=== PATIENT | male | born 1970 | race Caucasian/White ===

== ENCOUNTER 2021-03-09 10:25 | Outpatient (REF) | payer OTHER, SELFPAY ==
--- NOTE | ~2021-03-09 | XR_ITS ---
EXAMINATION: XR CHEST CLINICAL INFORMATION: Essential primary hypertension. COMPARISON: None TECHNIQUE: 2 views of the chest were obtained. FINDINGS: No significant abnormality is noted involving the heart, lungs, mediastinum, bony thorax or soft tissues. XR/XR chest 2V IMPRESSION: Unremarkable chest examination.
[2021-03-09 12:42] LABS: Blood Urea Nitrogen 24 mg/dL (9-16); Calcium 9.6 mg/dL (8.4-10.2); Estimated Glomerular Filt Rate > 60
[2021-03-09 12:47] LABS: Creatinine Urine 93.46 mg/dL; Protein/Creatinine Ratio, Ur 0.48 (<0.2); Total Protein Urine Random 45 mg/dL (<12)
[2021-03-09 13:41] LABS: Anion Gap 14 (12-20); Carbon Dioxide 25 mmol/L (22-29); Chloride 102 mmol/L (96-108); Sodium 136 mmol/L (135-145)
[2021-03-09 13:45] LABS: Renal w Reflex Lab Use Only Order verified
== END 2021-03-09 10:26 | disposition home or self-care (01) ==
LOC: HO.LAB 10:25
PROVIDERS: Absent Provider Internal Medicine; PCP Internal Medicine; Visit Provider Internal Medicine Nephrology
DX: I10 Essential (primary) hypertension (principal); R80.1 Persistent proteinuria, unspecified; Z90.5 Acquired absence of kidney
CPT/HCPCS: 36415; 71046; 80051; 82310; 82565; 84100; 84156; 84520

== ENCOUNTER 2022-03-26 14:16 | Outpatient (REF) | payer OTHER, SELFPAY ==
--- NOTE | ~2022-03-26 | XR_ITS ---
EXAMINATION: LUMBAR SPINE X-RAY CLINICAL INFORMATION: Low back pain radiating to left hip COMPARISON: None TECHNIQUE: 3 views of the lower lumbar spine FINDINGS: Bone alignment is normal. No fracture or dislocation is seen. The disc spaces are normal. There is lower lumbar spine facet arthritis. XR/XR lumbar spine 2-3V IMPRESSION: Lower lumbar spine facet arthritis. EXAMINATION: Left elbow x-ray CLINICAL INFORMATION: Pain COMPARISON: None. TECHNIQUE: 3 views of the left elbow FINDINGS: Bone alignment is normal. No fracture or dislocation is seen. The joint spaces are normal. There are soft tissue ossifications adjacent to the medial and lateral humeral epicondyles. There is an osteophyte at the triceps tendon insertion to the olecranon. There is no joint effusion. IMPRESSION: Soft tissue calcification or ossification at the medial and lateral epicondyles suggestive of old epicondylitis. Osteophyte at the triceps tendon insertion to the olecranon.
--- NOTE | ~2022-03-26 | XR_ITS ---
EXAMINATION: LUMBAR SPINE X-RAY CLINICAL INFORMATION: Low back pain radiating to left hip COMPARISON: None TECHNIQUE: 3 views of the lower lumbar spine FINDINGS: Bone alignment is normal. No fracture or dislocation is seen. The disc spaces are normal. There is lower lumbar spine facet arthritis. XR/XR elbow LT 2V IMPRESSION: Lower lumbar spine facet arthritis. EXAMINATION: Left elbow x-ray CLINICAL INFORMATION: Pain COMPARISON: None. TECHNIQUE: 3 views of the left elbow FINDINGS: Bone alignment is normal. No fracture or dislocation is seen. The joint spaces are normal. There are soft tissue ossifications adjacent to the medial and lateral humeral epicondyles. There is an osteophyte at the triceps tendon insertion to the olecranon. There is no joint effusion. IMPRESSION: Soft tissue calcification or ossification at the medial and lateral epicondyles suggestive of old epicondylitis. Osteophyte at the triceps tendon insertion to the olecranon.
== END 2022-03-26 14:17 | disposition home or self-care (01) ==
LOC: HO.XRAY 14:16
PROVIDERS: PCP Internal Medicine; Visit Provider Internal Medicine
DX: M25.522 Pain in left elbow (principal); M54.50 Low back pain, unspecified
CPT/HCPCS: 72100; 73070

== ENCOUNTER 2022-04-28 15:16 | Outpatient (REF) | payer OTHER, SELFPAY ==
--- NOTE | ~2022-04-28 | US_ITS ---
EXAMINATION: US SCROTUM CLINICAL INFORMATION: Unspecified undescended testicle, unilateral. COMPARISON: None TECHNIQUE: A sonogram of the scrotum was performed assessing portillo-scale appearance and color Doppler flow. Spectral Doppler analysis of the arterial and venous flow were performed in the testes bilaterally. FINDINGS: RIGHT: Right testicle measures 3.0 x 1.5 x 2.1 cm, volume 5.0 mL. No focal testicular parenchymal lesions are visualized. Spectral Doppler analysis of the arterial and venous flow is normal in the right testis. Right epididymal head is normal in size. There is an anechoic cyst in the body of the epididymis. No right hydrocele or varicocele is seen. Right epididymal Doppler flow is normal. LEFT: Left testicle measures 3.3 x 1.5 x 1.9 cm, volume 5.1 mL. No focal testicular parenchymal lesions are visualized. Spectral Doppler analysis of the arterial and venous flow is normal in the left testis. There are prominent dilated vessels in the left scrotum and left testicle is suspicious for varicosity. Left epididymal head is normal in size. There is an anechoic cyst in the head of the epididymis. No left hydrocele or varicocele is seen. Left epididymal Doppler flow is normal. US/US scrotum IMPRESSION: Bilateral epididymal cysts. Dilated vessels in the left testicle and the scrotum suspicious for varicose veins. There is no hydrocele. The testes are unremarkable.
== END 2022-04-28 15:17 | disposition home or self-care (01) ==
LOC: HO.US 15:16
PROVIDERS: Visit Provider Internal Medicine
DX: Q53.10 Unspecified undescended testicle, unilateral (principal)
CPT/HCPCS: 76870

== ENCOUNTER 2023-02-21 16:14 | Outpatient (REF) | payer OTHER, SELFPAY ==
[2023-02-21 16:30] LABS: MANUAL DIFF FLAG NO
[2023-02-21 17:31] LABS: Basophils Absolute Auto 0.1 X10*3/uL (0.0-0.2); Basophils Percent Auto 0.8 % (0-2); Eosinophils Absolute Auto 0.5 X10*3/uL (0.0-0.4); Hematocrit 44.9 % (42.0-52.0); Hemoglobin 15.7 g/dl (14.0-18.0); Imm Gran Abs Auto 0.04 X10*3/uL (0.00-0.03); Imm Gran Pct Auto 0.4 % (0.0-0.4); Lymphocytes Absolute Auto 3.3 X10*3/uL (1.2-4.9); Lymphocytes Percent Auto 34.8 % (20-40); Mean Corpuscular Hemoglobin 31.1 pg (27.0-33.0); Mean Corpuscular Volume 88.9 fL (80.0-98.0); Mean Platelet Volume 10.2 fL (9.4-12.4); Monocytes Absolute Auto 0.8 X10*3/uL (0.1-1.2); Monocytes Percent Auto 8.6 % (2-11); Neutrophils Absolute Auto 4.8 x10*3/uL (2.0-8.3); Neutrophils Percent Auto 50.4 % (45-73); Platelet Count 286 X10*3/uL (160-400); Red Blood Count 5.05 X10*6/uL (4.60-5.80); Red Cell Distribution Width 12.2 % (11.0-16.0); White Blood Count 9.5 X10*3/uL (4.8-10.8)
[2023-02-21 17:35] LABS: Appearance Urine Clear; Color Urine Yellow; Glucose Urine UA Negative (Negative); Leukocyte Esterase Urine Negative (Negative); Nitrite Urine Negative (Negative); PH 5.5 (5.0-9.0); Specific Gravity - Urine 1.015 (1.005-1.025); UMIC TRIGGER UA YES; Urine Blood Negative (Negative); Urine Ketones Negative (Negative); Urine Protein 100 (2+) mg/dL (Neg-Trace)
[2023-02-21 17:40] LABS: Bacteria Urine None Seen (None Seen); Hyaline Casts Urine 0-2 /LPF (0-2); RBC Urine 0-2 /HPF (0-2); Squamous Epithelial Cell Urine 0-2 /HPF (0-2); WBC Urine 0-5 /HPF (0-5)
[2023-02-21 17:44] LABS: Creatinine Urine 111.46 mg/dL; Protein/Creatinine Ratio, Ur 0.98 (<0.2); Total Protein Urine Random 109 mg/dL (<12)
[2023-02-21 17:59] LABS: Alanine Aminotransferase 37 U/L (0-40); Albumin Level 4.1 g/dL (3.5-5.0); Alkaline Phosphatase 89 U/L (39-117); Anion Gap 12 (12-20); Aspartate Amino Transferase 25 U/L (5-37); Blood Urea Nitrogen 14 mg/dL (9-16); Calcium 9.6 mg/dL (8.4-10.2); Carbon Dioxide 27 mmol/L (22-29); Chloride 107 mmol/L (96-108); Estimated Glomerular Filt Rate > 60; Glucose Random 84 mg/dL (60-115); Potassium 4.3 mmol/L (3.3-5.1); Sodium 142 mmol/L (135-145)
== END 2023-02-21 16:15 | disposition home or self-care (01) ==
LOC: HO.LAB 16:14
PROVIDERS: Visit Provider Internal Medicine Hypertension Specialist
DX: R80.1 Persistent proteinuria, unspecified (principal)
CPT/HCPCS: 36415; 80053; 81001; 84156; 85025

== ENCOUNTER 2023-07-07 15:47 | Outpatient (AMB) | payer OTHER, SELFPAY ==
[2023-07-07 15:49] VITALS: BP 136/90; PULSE 71; O2SAT 97; BMI 27.1
--- NOTE | 2023-07-07 15:49 | AM.OFFVISMDC ---
Intake Vital Signs 07/07/23 15:49 Height 5 ft 5 in Weight 163 lb BMI 27.1 BP 136/90 H Blood Pressure Location Lt brachial Position Sitting Pulse 71 Pulse Source Pulse Oximeter Temp Source Skin Pulse Oximetry (%) 97 Oxygen Delivery Method Room Air Intake Visit Reasons: SAWV Intake Note: Patient is here for an Annual Wellness Visit. 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 Patient of Dr. Kelly. Today we discussed patient's need for prostate cancer screening. Tetanus vaccine in 2018 per patient. Cologuard negative 07/2022. [place] of care was reviewed with the patient and he was provided with a screening schedule. End of life planning was discussed with the patient and he was provided with healthcare proxy and MOLST forms. PHQ-9 score 20, patient denies SI or HI, patient grieving due to of his dog 3 weeks ago, declined therapist or psychiatry referral, reports he has crisis phone number. ON LICENSE OF [facility] Medical History Hypertension Otitis media Screening for diabetes mellitus Screening for prostate cancer Surgical History No pertinent past surgical history Family History Father No problems noted. Mother Breast cancer Diabetes Brother Diabetes Hypertension Social History Housing: Apartment Alcohol intake: current Alcohol intake frequency: a few times a week Alcohol type: beer Patient Tobacco Use Status: Current everyday Tobacco user Tobacco use type: Cigarette Cigarettes Per Day: 7 e-Cigarette/Vaping Use: Never Used Second Hand Smoke Exposure: No service: No Current occupational status: employed and disabled Cognitive needs: No Hearing needs: No Vision needs: No Questionnaire Medicare Wellness Checkup What [age]?: 65-69 (52) What gender do you identify with?: male During the past 4 weeks, how much have you been bothered by emotional problems such as feeling anxious, depressed, irritable, sad or downhearted, and blue?: extremely During the past 4 weeks, has your physical & emotional health limited your social activities with family, friends, neighbors, or groups?: extremely During the past 4 weeks, how much bodily pain have you generally had?: moderate pain During the past 4 weeks, was someone available to help you if you needed & wanted help?: yes, as much as I wanted During the past 4 weeks, what was the hardest physical activity you could do for at least 2 minutes?: light Can you get to places out of walking distance without help? (For eg., can you travel alone on buses, taxis or drive your car?): Yes Can you go shopping for groceries or clothes without someone's help?: Yes Can you prepare your own meals?: Yes Can you do your housework without help?: Yes Because of any health problems, do you need the help of another person with your personal care needs such as eating, bathing, dressing or getting around the house?: No Can you handle your own money without help?: Yes During the past 4 weeks, how would you rate your health in general?: fair During the past 4 weeks how have things been going for you?: pretty bad Are you having difficulties driving your car?: no Do you always fasten your seat belt when you are in a car?: yes, usually During past 4 weeks, have you been bothered by the following: never: Falling or dizzy when standing up, Sexual problems?, Teeth or denture problems? and Problems using the telephone?, seldom: Trouble eating well? and always: Tiredness or fatigue? Have you fallen 2 or more times in the past year?: No Are you afraid of falling?: No Are you a smoker?: yes, and I might quit During the past 4 weeks, how many drinks of wine, beer, or other alcoholic beverages did you have?: 6-9 drinks per week Do you exercise for about 20 minutes 3 or more times a week?: yes, most of the time How often do you have trouble taking medicines the way you have been told to take them?: I always take medicine as prescribed How confident are you that you can control & manage most of your health problems?: very confident What is your race?: or origin or descent Mini Mental State Exam (MMSE) Orientation What is the (year) (season) (date) (day) (month)?: year, season, date, day and month Score Score: 5 Activity of Daily Living Bathing - sponge bath, tub bath or shower: receives no assistance (gets in/out by self, if usual bathing means Dressing - getting clothes from closets & drawers, including inner/outer garments & fasteners.: gets clothes & gets completely dressed without help Toileting - going to the 'toilet room' for urine/bowel elimination & cleaning self/arranging clothes: goes to toilet room, cleans self, arranges clothes without help Transfer: moves in & out of bed and chair without help (may use support object) Continence: controls urination/bowel movements completely by self Feeding: feeds self without help Total Score: 0 Information obtained from: patient Using telephone: independent Traveling: independent Shopping: independent Preparing meals: independent Housework: independent Taking medicine: independent Managing money: independent PHQ-9 Over the last 2 weeks, how often have you been bothered by any of the following problems? 1. Little interest or pleasure in doing things: nearly every day 2. Feeling down, depressed, or hopeless: nearly every day 3. Trouble falling or staying asleep, or sleeping too much: nearly every day 4. Feeling tired or having little energy: nearly every day 5. Poor appetite or overeating: nearly every day 6. Feeling bad about yourself - or that you are a failure or have let yourself or your family down: not at all 7. Trouble concentrating on things, such as reading the newspaper or watching television: nearly every day 8. Moving or speaking so slowly that other people could have noticed. Or the opposite - being so fidgety or restless that you have been moving around a lot more than usual: not at all 9. Thoughts that you would be better off or of hurting yourself in some way: more than half the days Total score: 20 Depression Screening Interpretation: Positive Depression Screening Follow-up: Existing condition and Declines treatment 40136 - PHQ-9 Billing: Yes Source: Developed by Drs. Gentry Cruz, Sarah Mcdermott, Gabriel Austin and colleagues, with an educational michael from [employer]. Physical Exam Vital Signs: Last Vital Signs Pulse 71 07/07/23 15:49 BP 136/90 H 07/07/23 15:49 Pulse Ox 97 07/07/23 15:49 Oxygen Delivery Method Room Air 07/07/23 15:49 BMI result Body Mass Index 27.1 Const General: cooperative and no acute distress Orientation/consciousness: patient oriented x3 HEENT Other: Whisper test: pass Neuro Other: Balance: Normal Get up and walk: able to Romberg: negative Tandem gait: able to General: patient oriented x3 Assessment & Plan Assessment & Plan (1) Adult general medical exam: Code(s): Z00.00 - Encounter for general adult medical examination without abnormal findings (2) Screening for prostate cancer: Code(s): Z12.5 - Encounter for screening for malignant neoplasm of prostate (3) Depression: Code(s): F32.9 - Major depressive disorder, single episode, unspecified Qualifiers: Depression Type: unspecified Qualified Code(s): F32.9 - Major depressive disorder, single episode, unspecified Plan: PHQ-9 score 20, patient denies SI or HI, patient grieving due to of his dog 3 weeks ago, declined therapist or psychiatry referral, reports he has crisis phone number. (4) Bipolar disorder: Code(s): F31.9 - Bipolar disorder, unspecified Qualifiers: Active/Remission status: remission status unspecified Qualified Code(s): F31.9 - Bipolar disorder, unspecified Plan: Not on treatment Same as above (5) Hypertension: Code(s): I10 - Essential (primary) hypertension Qualifiers: Hypertension type: unspecified Qualified Code(s): I10 - Essential (primary) hypertension Plan: Continue current treatment Low-sodium diet (6) Asthma: Code(s): J45.909 - Unspecified asthma, uncomplicated Plan: Stable Continue albuterol inhaler p.r.n. Orders: Orders Prostate Specific Antigen Today Z12.5 - Encounter for screening for malignant neoplasm of prostate Medications: Changed From lisinopril 2.5 mg PO DAILY 90 tabs 8RF To lisinopril 5 mg PO DAILY Quality Reporting (2019) Depression/Bipolar (159/160/161/177) PHQ-9: Total score: 20 Coding Level of Care Code Medicare Subsequent (G0439) Diagnoses Adult general medical exam Z00.00 Screening for prostate cancer Z12.5 Depression F32.9 Depression Type: unspecified Bipolar disorder F31.9 Active/Remission status: remission status unspecified Hypertension I10 Hypertension type: unspecified Asthma J45.909 CPT Codes Advance Care Planning - Time spent: 1-15 minutes, not on file ([id number]) Advance Care Planning Date of discussion: 07/07/23 Who was present: pt and palliative senior np Forms completed: None Time spent: 1-15 minutes, not on file Actual minutes spent: 2 Did not discuss due to Cultural/Spiritual beliefs: No
== END 2023-07-07 16:23 | disposition home or self-care (01) ==
LOC: HO.HMGH 15:47
PROVIDERS: PCP Internal Medicine; Visit Provider Nurse Practitioner Family
DX: Z00.00 Encounter for general adult medical examination without abnormal findings (principal); F31.9 Bipolar disorder, unspecified; I10 Essential (primary) hypertension; J45.909 Unspecified asthma, uncomplicated; F32.9 Major depressive disorder, single episode, unspecified
CPT/HCPCS: 1124F; G0439

== ENCOUNTER 2023-08-19 10:36 | Outpatient (AMB) | payer OTHER, SELFPAY ==
[2023-08-19 10:51] VITALS: BP 132/70; PULSE 75; O2SAT 99; BMI 27.3
--- NOTE | 2023-08-19 10:51 | A.OFFPC_ITS ---
Vital Signs 08/19/23 10:51 Height 5 ft 5 in Weight 164 lb BMI 27.3 BP 132/70 Blood Pressure Location Lt brachial Position Sitting Pulse 75 Pulse Source Pulse Oximeter Pulse Oximetry (%) 99 Oxygen Delivery Method Room Air Intake Visit Reasons: stomach upset Allergies Penicillins [PENICILLINS] Allergy (Severe, Verified 08/19/23 10:51) ANAPHYLAXIS SEAFOOD Allergy (Severe, Uncoded 08/19/23 10:51) HIVES penincillin Allergy (Unknown, Uncoded 08/19/23 10:51) Immunodeficiency Medication List - Last Reconciled 08/19/23 by Demarco Kelly MD albuterol sulfate 90 mcg/actuation (ProAir HFA) 2 puffs PO Q6H PRN lisinopril 5 mg PO DAILY naproxen (Naprosyn) 500 mg PO BID PRN Tobacco use date assessed: 11/17/22 Dental Screening Dental Screen Date: 08/19/23 Did you have a dental visit in the last 12 months?: No Did you have a dental problem in the last 6 months where you did not have access to dental care?: No Was dental information given to patient?: Patient has dentist HPI stomach upset HPI Details back pain after lifting furniture PFSH Medical History Screening for prostate cancer Screening for diabetes mellitus Hypertension Otitis media Surgical History No pertinent past surgical history Family History Father No problems noted. Mother Breast cancer Diabetes Brother Diabetes Hypertension Social History Housing: Apartment Alcohol intake: current Alcohol intake frequency: a few times a week Alcohol type: beer Patient Tobacco Use Status: Current everyday Tobacco user Tobacco use type: Cigarette Cigarettes Per Day: 7 e-Cigarette/Vaping Use: Never Used Second Hand Smoke Exposure: No service: No Current occupational status: employed and disabled Cognitive needs: No Hearing needs: No Vision needs: No Questionnaire PHQ-9 Over the last 2 weeks, how often have you been bothered by any of the following problems? 1. Little interest or pleasure in doing things: nearly every day 2. Feeling down, depressed, or hopeless: nearly every day 3. Trouble falling or staying asleep, or sleeping too much: nearly every day 4. Feeling tired or having little energy: nearly every day 5. Poor appetite or overeating: nearly every day 6. Feeling bad about yourself - or that you are a failure or have let yourself or your family down: not at all 7. Trouble concentrating on things, such as reading the newspaper or watching television: nearly every day 8. Moving or speaking so slowly that other people could have noticed. Or the opposite - being so fidgety or restless that you have been moving around a lot more than usual: not at all 9. Thoughts that you would be better off or of hurting yourself in some way: more than half the days Total score: 20 Depression Screening Interpretation: Positive Depression Screening Follow-up: Existing condition and Declines treatment Depression Screening Done: Yes 28780 - PHQ-9 Billing: Yes Source: Developed by Drs. Gentry Cruz, Sarah Mcdermott, Gabriel Austin and colleagues, with an educational michael from [employer]. Thrive Questionnaire Date Thrive assessed: 11/17/22 AUDIT C Alcohol Use Questionnaire (AUDIT-C) 1. How often do you have a drink containing alcohol?: 2-3 times a week 2. How many drinks containing alcohol do you have on a typical day when you are drinking?: 3 or 4 3. How often do you have six or more drinks on one occasion?: Never Total Score: 4 Score Reviewed/Action Taken: Yes BARRY-7 AMB Questionnaire BARRY-7 Date BARRY - 7 assessed: 11/17/22 Source: Developed by Drs. Gentry Cruz, Gabriel Zhong and colleagues, with an educational michael from [employer]. Review of Systems Const Denies chills, Denies headache(s) and Denies weight loss ENT Denies headache(s) Card Denies chest pain, Denies syncope, Denies irregular heart rhythm and Denies dyspnea Resp Denies chest congestion, Denies cough and Denies dyspnea GI Denies change in stool character Musc Denies deformity and Denies joint swelling Neuro Denies syncope and Denies headache(s) Physical exam (Primary Care) Vital Signs: Last Vital Signs Pulse 75 08/19/23 10:51 BP 132/70 08/19/23 10:51 Pulse Ox 99 08/19/23 10:51 Oxygen Delivery Method Room Air 08/19/23 10:51 BMI result Body Mass Index 27.3 Tobacco/Smoking Status: Tobacco use Status Tobacco use date assessed 11/17/22 08/19/23 10:56 Patient Tobacco Use Status Current everyday Tobacco 08/19/23 10:56 Tobacco use type Cigarette 08/19/23 10:56 e-Cigarette/Vaping Use Never Used 08/19/23 10:56 PHQ-9: PHQ-9 Score PHQ-9: Total score 20 08/19/23 10:56 Depression Screening Interpretation: Positive Depression Screening Follow-up: Existing condition and Declines treatment Thrive Assessment: Date of Thrive Assessment Date Thrive assessed 11/17/22 08/19/23 10:56 Assessment and Plan Assessment & Plan (1) Low back pain: Code(s): M54.50 - Low back pain, unspecified Plan: rx Medications: New omeprazole 20 mg PO DAILY 90 tabs 8RF cyclobenzaprine 10 mg PO TID PRN 30 tabs 2RF muscle spasm Coding Level of Care Code Est Pt Level 3 (93528) Diagnoses Low back pain M54.50
== END 2023-08-19 11:18 | disposition home or self-care (01) ==
PROVIDERS: PCP Internal Medicine; Visit Provider Internal Medicine
DX: M54.50 Low back pain, unspecified (principal)
CPT/HCPCS: 99213

== ENCOUNTER 2024-01-06 10:24 | Outpatient (AMB) | payer MEDICARE, MEDICAID, SELFPAY ==
[2024-01-06 10:26] VITALS: BP 132/70; PULSE 70; O2SAT 98; BMI 27.1
--- NOTE | 2024-01-06 10:26 | MHC.PC.OV ---
Vital Signs 01/06/24 10:26 Height 5 ft 5 in Weight 163 lb BMI 27.1 BP 132/70 Blood Pressure Location Lt brachial Position Sitting Pulse 70 Pulse Source Pulse Oximeter Pulse Oximetry (%) 98 Oxygen Delivery Method Room Air Intake Visit Reasons: depression Allergies Penicillins [PENICILLINS] Allergy (Severe, Verified 08/19/23 10:51) ANAPHYLAXIS SEAFOOD Allergy (Severe, Uncoded 08/19/23 10:51) HIVES penincillin Allergy (Unknown, Uncoded 08/19/23 10:51) Immunodeficiency Medication List - Last Reconciled 01/06/24 by Demarco Kelly MD albuterol sulfate 90 mcg/actuation (ProAir HFA) 2 puffs PO Q6H PRN cyclobenzaprine 10 mg PO TID PRN lisinopril 10 mg PO DAILY naproxen (Naprosyn) 500 mg PO BID PRN omeprazole 20 mg PO DAILY Tobacco use date assessed: 11/17/22 Dental Screening Dental Screen Date: 01/06/24 Did you have a dental visit in the last 12 months?: No Did you have a dental problem in the last 6 months where you did not have access to dental care?: Yes Was dental information given to patient?: Patient has dentist HPI depression HPI Details paresthesias right hand and arm for a month PFSH Medical History Screening for prostate cancer Screening for diabetes mellitus Hypertension Otitis media Surgical History No pertinent past surgical history Family History Father No problems noted. Mother Breast cancer Diabetes Brother Diabetes Hypertension Social History Housing: Apartment Alcohol intake: current Alcohol intake frequency: a few times a week Alcohol type: beer Patient Tobacco Use Status: Current everyday Tobacco user Tobacco use type: Cigarette Cigarettes Per Day: 7 e-Cigarette/Vaping Use: Never Used Second Hand Smoke Exposure: No service: No Current occupational status: employed and disabled Cognitive needs: No Hearing needs: No Vision needs: No Questionnaire PHQ-9 Over the last 2 weeks, how often have you been bothered by any of the following problems? 1. Little interest or pleasure in doing things: nearly every day 2. Feeling down, depressed, or hopeless: nearly every day 3. Trouble falling or staying asleep, or sleeping too much: nearly every day 4. Feeling tired or having little energy: nearly every day 5. Poor appetite or overeating: nearly every day 6. Feeling bad about yourself - or that you are a failure or have let yourself or your family down: not at all 7. Trouble concentrating on things, such as reading the newspaper or watching television: nearly every day 8. Moving or speaking so slowly that other people could have noticed. Or the opposite - being so fidgety or restless that you have been moving around a lot more than usual: not at all 9. Thoughts that you would be better off or of hurting yourself in some way: more than half the days Total score: 20 Depression Screening Interpretation: Positive Depression Screening Follow-up: Existing condition and Declines treatment Depression Screening Done: Yes 93739 - PHQ-9 Billing: Yes Source: Developed by Drs. Gentry Cruz, Sarah Mcdermott, Gabriel Austin and colleagues, with an educational michael from [employer]. Thrive Questionnaire Date Thrive assessed: 01/06/24 I am a: Patient What is your living situation today?: I have a steady place to live Within the past 12 months, did the food you bought not last and you didn't have the money to get more?: Never true Within the past 12 months, did you worry whether your food would run out before you got money to buy more?: Never true Do you have trouble paying for medicines?: No Do you have trouble getting transportation to medical appointments?: No Do you have trouble paying your heating and electricity bill?: No Do you have trouble taking care of your child, family member or friend?: No Do you have trouble with day-to-day activities such as bathing, preparing meals, shopping, managing finances, etc.?: No Are you currently unemployed and looking for a job?: No Are you interested in more education?: No Please select the resources that you would like help with: None THRIVE Score: 0 AUDIT C Alcohol Use Questionnaire (AUDIT-C) 1. How often do you have a drink containing alcohol?: 2-3 times a week 2. How many drinks containing alcohol do you have on a typical day when you are drinking?: 3 or 4 3. How often do you have six or more drinks on one occasion?: Never Total Score: 4 Score Reviewed/Action Taken: Yes BARRY-7 AMB Questionnaire BARRY-7 Date BARRY - 7 assessed: 01/06/24 Feeling nervous, anxious, or on edge: 0 = Not at all Not being able to stop or control worryin = Not at all Worrying too much about different things: 0 = Not at all Trouble relaxin = Not at all Being so restless that it is hard to sit still: 0 = Not at all Becoming easily annoyed or irritable: 0 = Not at all Feeling afraid as if something awful might happen: 0 = Not at all Total BARRY-7 score (0-4 normal; 5-9 mild; 10-14 moderate; 15-21 severe): 0 Source: Developed by Drs. Gentry Cruz, Sarah Mcdermott, Gabriel Austin and colleagues, with an educational michael from [employer]. BARRY-7 Assessment Billing BARRY-7 Assessment Tool: BARRY-7 Assessment 55430 Review of Systems Const Denies chills, Denies headache(s) and Denies weight loss ENT Denies headache(s) Card Denies chest pain, Denies syncope, Denies irregular heart rhythm and Denies dyspnea Resp Denies chest congestion, Denies cough and Denies dyspnea GI Denies abdominal pain, Denies change in stool character, Denies nausea and Denies vomiting Musc Denies deformity and Denies joint swelling Neuro Denies syncope and Denies headache(s) Physical exam (Primary Care) Vital Signs: Last Vital Signs Pulse 70 01/06/24 10:26 BP 132/70 01/06/24 10:26 Pulse Ox 98 01/06/24 10:26 Oxygen Delivery Method Room Air 01/06/24 10:26 BMI result Body Mass Index 27.1 Tobacco/Smoking Status: Tobacco use Status Tobacco use date assessed 11/17/22 01/06/24 10:28 Patient Tobacco Use Status Current everyday Tobacco 01/06/24 10:28 Tobacco use type Cigarette 01/06/24 10:28 e-Cigarette/Vaping Use Never Used 03/01/24 10:28 PHQ-9: PHQ-9 Score PHQ-9: Total score 20 01/06/24 10:28 Depression Screening Interpretation: Positive Depression Screening Follow-up: Existing condition and Declines treatment Thrive Assessment: Date of Thrive Assessment Date Thrive assessed 01/06/24 01/06/24 10:28 Const General: cooperative, comfortable, no acute distress and alert Neck Neck: Yes no lymphadenopathy Thyroid: Thyroid normal Resp Effort & Inspection: normal respiratory effort Auscultation: clear to auscultation bilaterally Percussion: percussion normal Cardio Jugular venous distension: no JVD Palpation: normal PMI Rate: regular rate Rhythm: regular rhythm Heart sounds: S1 normal heart sound present and S2 normal heart sound present GI Inspection: Yes normal to inspection Palpation (GI): No hepatosplenomegaly present Skin General skin exam: no rashes or lesions noted Extrem General: Yes no clubbing, cyanosis or edema Assessment and Plan Assessment & Plan (1) Paresthesias in right hand: Code(s): R20.2 - Paresthesia of skin Plan: NCS ordeed Orders: Orders NE nerve conduction velocity Today R20.2 - Paresthesia of skin Coding Level of Care Code Est Pt Level 3 (82403) Diagnoses Paresthesias in right hand R20.2 Additional Codes BARRY-7 Assessment Billing - BARRY-7 Assessment Tool: BARRY-7 Assessment [id number] ([id number])
== END 2024-01-06 10:44 | disposition home or self-care (01) ==
PROVIDERS: PCP Internal Medicine; Visit Provider Internal Medicine
DX: R20.2 Paresthesia of skin (principal)
CPT/HCPCS: 99213

== ENCOUNTER 2024-01-19 09:38 | Outpatient (REF) | payer MEDICARE, MEDICAID, SELFPAY ==
--- NOTE | 2024-01-19 09:44 | EMG_ITS ---
His right median and ulnar motor and sensory studies were performed. Right radial sensory study was performed and median and lateral antecubital brachial sensory studies were performed. Needle examination was performed. IMPRESSION: Moderately severe right median neuropathy across carpal tunnel. MD MAZIN Nowak/DERECK / [id number]
== END 2024-01-19 09:39 | disposition home or self-care (01) ==
LOC: HO.NEURO 09:38
PROVIDERS: PCP Internal Medicine; Visit Provider Internal Medicine
DX: M79.601 Pain in right arm (principal); R20.2 Paresthesia of skin
CPT/HCPCS: 95886; 95910

== ENCOUNTER 2024-01-30 12:45 | Outpatient (AMB) | payer MEDICARE, SELFPAY ==
[2024-01-30 12:48] VITALS: BP 150/88; PULSE 65; O2SAT 99; BMI 27.1
--- NOTE | 2024-01-30 12:48 | MHC.PC.OV ---
Vital Signs 01/30/24 12:48 Height 5 ft 5 in Weight 163 lb BMI 27.1 BP 150/88 H Blood Pressure Location Lt brachial Position Sitting Pulse 65 Pulse Source Pulse Oximeter Pulse Oximetry (%) 99 Oxygen Delivery Method Room Air Intake Visit Reasons: abscess in right side of mouth Sales Contracts Analyst Required: No In Store Marketing Associate: Not Required per policy Accompanied by: Self / Same As Patient Allergies Penicillins [PENICILLINS] Allergy (Severe, Verified 01/30/24 12:48) ANAPHYLAXIS SEAFOOD Allergy (Severe, Uncoded 01/30/24 12:48) HIVES penincillin Allergy (Unknown, Uncoded 01/30/24 12:48) Immunodeficiency Medication List - Last Reconciled 01/30/24 by Demarco Kelly MD albuterol sulfate 90 mcg/actuation (ProAir HFA) 2 puffs PO Q6H PRN cyclobenzaprine 10 mg PO TID PRN lisinopril 10 mg PO DAILY naproxen (Naprosyn) 500 mg PO BID PRN omeprazole 20 mg PO DAILY Tobacco use date assessed: 01/30/24 Dental Screening Dental Screen Date: 01/30/24 Did you have a dental visit in the last 12 months?: Yes Did you have a dental problem in the last 6 months where you did not have access to dental care?: No Was dental information given to patient?: Patient has dentist HPI abscess in right side of mouth HPI Details dental abscess right lower molar; has dental appt [facility] Medical History Screening for prostate cancer Screening for diabetes mellitus Hypertension Otitis media Surgical History No pertinent past surgical history Family History Father No problems noted. Mother Breast cancer Diabetes Brother Diabetes Hypertension Social History Housing: Apartment Alcohol intake: current Alcohol intake frequency: a few times a week Alcohol type: beer Patient Tobacco Use Status: Current everyday Tobacco user Tobacco use type: Cigarette Cigarettes Per Day: 7 e-Cigarette/Vaping Use: Never Used Second Hand Smoke Exposure: No service: No Current occupational status: employed and disabled Cognitive needs: No Hearing needs: No Vision needs: No Questionnaire Thrive Questionnaire Date Thrive assessed: 01/06/24 BARRY-7 AMB Questionnaire BARRY-7 Date BARRY - 7 assessed: 01/06/24 Source: Developed by Drs. Gentry Cruz, Sarah Mcdermott, Gabriel Austin and colleagues, with an educational michael from [employer]. Review of Systems Const Denies chills, Denies headache(s) and Denies weight loss ENT Denies headache(s) Card Denies chest pain, Denies syncope, Denies irregular heart rhythm and Denies dyspnea Resp Denies chest congestion, Denies cough and Denies dyspnea GI Denies abdominal pain, Denies change in stool character, Denies nausea and Denies vomiting Musc Denies deformity and Denies joint swelling Neuro Denies syncope and Denies headache(s) Physical exam (Primary Care) Vital Signs: Last Vital Signs Pulse 65 01/30/24 12:48 BP 150/88 H 01/30/24 12:48 Pulse Ox 99 01/30/24 12:48 Oxygen Delivery Method Room Air 01/30/24 12:48 BMI result Body Mass Index 27.1 Tobacco/Smoking Status: Tobacco use Status Tobacco use date assessed 01/30/24 01/30/24 12:49 Patient Tobacco Use Status Current everyday Tobacco 01/30/24 12:49 Tobacco use type Cigarette 01/30/24 12:49 e-Cigarette/Vaping Use Never Used 01/30/24 12:49 Thrive Assessment: Date of Thrive Assessment Date Thrive assessed 01/06/24 01/30/24 12:49 Const General: cooperative, comfortable, no acute distress and alert Neck Neck: Yes no lymphadenopathy Thyroid: Thyroid normal Resp Effort & Inspection: normal respiratory effort Auscultation: clear to auscultation bilaterally Percussion: percussion normal Cardio Jugular venous distension: no JVD Palpation: normal PMI Rate: regular rate Rhythm: regular rhythm Heart sounds: S1 normal heart sound present and S2 normal heart sound present GI Inspection: Yes normal to inspection Palpation (GI): No hepatosplenomegaly present Skin General skin exam: no rashes or lesions noted Extrem General: Yes no clubbing, cyanosis or edema Assessment and Plan Assessment & Plan (1) Dental abscess: Code(s): K04.7 - Periapical abscess without sinus Plan: rx sent Orders: Referrals Orthopedics Referral G56.00 - Carpal tunnel syndrome, unspecified upper limb Medications: New ibuprofen 600 mg PO Q8H PRN 30 tabs 0RF pain ciprofloxacin HCl (Cipro) 250 mg PO BID 10 tabs 0RF Coding Level of Care Code Est Pt Level 3 (30345) Diagnoses Dental abscess K04.7
== END 2024-01-30 13:07 | disposition home or self-care (01) ==
PROVIDERS: PCP Internal Medicine; Visit Provider Internal Medicine
DX: K04.7 Periapical abscess without sinus (principal)
CPT/HCPCS: 99213

== ENCOUNTER 2024-02-28 14:50 | Outpatient (REF) | payer MEDICARE, SELFPAY ==
[2024-02-28 15:10] LABS: MANUAL DIFF FLAG NO
[2024-02-28 15:28] LABS: Basophils Absolute Auto 0.1 X10*3/uL (0.0-0.2); Eosinophils Absolute Auto 0.3 X10*3/uL (0.0-0.4); Eosinophils Percent Auto 3.9 % (0-4); Hematocrit 46.9 % (42.0-52.0); Hemoglobin 16.3 g/dl (14.0-18.0); Imm Gran Abs Auto 0.03 X10*3/uL (0.00-0.03); Imm Gran Pct Auto 0.4 % (0.0-0.4); Lymphocytes Absolute Auto 2.2 X10*3/uL (1.2-4.9); Lymphocytes Percent Auto 28.2 % (20-40); Mean Corpuscular HGB Conc 34.8 g/dl (31.0-36.0); Mean Corpuscular Hemoglobin 30.6 pg (27.0-33.0); Mean Corpuscular Volume 88.2 fL (80.0-98.0); Monocytes Absolute Auto 0.7 X10*3/uL (0.1-1.2); Monocytes Percent Auto 8.9 % (2-11); Neutrophils Absolute Auto 4.5 x10*3/uL (2.0-8.3); Neutrophils Percent Auto 57.6 % (45-73); Platelet Count 329 X10*3/uL (160-400); Red Blood Count 5.32 X10*6/uL (4.60-5.80); Red Cell Distribution Width 12.3 % (11.0-16.0); White Blood Count 7.9 X10*3/uL (4.8-10.8)
[2024-02-28 15:56] LABS: Appearance Urine Clear; Color Urine Yellow; Glucose Urine UA Negative (Negative); Leukocyte Esterase Urine Negative (Negative); Nitrite Urine Negative (Negative); PH 5.5 (5.0-9.0); Specific Gravity - Urine 1.015 (1.005-1.025); UMIC TRIGGER UA YES; Urine Blood Trace (Negative); Urine Ketones Negative (Negative); Urine Protein 30 (1+) mg/dL (Neg-Trace)
[2024-02-28 15:59] LABS: Bacteria Urine None Seen (None Seen); Hyaline Casts Urine 0-2 /LPF (0-2); RBC Urine 0-2 /HPF (0-2); Squamous Epithelial Cell Urine 0-2 /HPF (0-2); WBC Urine 0-5 /HPF (0-5)
[2024-02-28 16:15] LABS: Anion Gap 12 (12-20); Blood Urea Nitrogen 27 mg/dL (9-16); Calcium 10.1 mg/dL (8.4-10.2); Carbon Dioxide 25 mmol/L (22-29); Chloride 105 mmol/L (96-108); Estimated Glomerular Filt Rate > 60; Potassium 5.1 mmol/L (3.3-5.1); Sodium 137 mmol/L (135-145); Uric Acid 8.1 mg/dL (3.4-7.0)
[2024-02-28 16:24] LABS: Vitamin D 25-OH Total 19.2 ng/mL (>30)
[2024-02-28 17:24] LABS: Creatinine Urine 85.83 mg/dL; Microalbum/Creatinine Ratio Ur 393.8 ug/mg cr (<30); Protein/Creatinine Ratio, Ur 0.59 (<0.2); Total Protein Urine Random 51 mg/dL (<12)
== END 2024-02-28 14:51 | disposition home or self-care (01) ==
LOC: HO.LAB 14:50
PROVIDERS: Internal Medicine; PCP Internal Medicine; Visit Provider Internal Medicine
DX: R80.1 Persistent proteinuria, unspecified (principal); R39.89 Other symptoms and signs involving the genitourinary system
CPT/HCPCS: 36415; 80051; 81001; 82043; 82306; 82310; 82565; 82570; 84156; 84520; 84550; 85025

== ENCOUNTER 2024-05-07 10:40 | Outpatient (AMB) | payer MEDICARE, SELFPAY ==
[2024-05-07 10:46] VITALS: BP 134/80; PULSE 67; O2SAT 98; BMI 26.1
--- NOTE | 2024-05-07 10:46 | MHC.PC.OV ---
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: Not Required per policy Accompanied by: Self / Same As Patient Allergies Penicillins [PENICILLINS] Allergy (Severe, Verified 05/07/24 10:47) ANAPHYLAXIS SEAFOOD Allergy (Severe, Uncoded 05/07/24 10:47) HIVES penincillin Allergy (Unknown, Uncoded 05/07/24 10:47) Immunodeficiency Medication List - Last Reconciled 05/08/24 by Demarco Kelly MD albuterol sulfate 90 mcg/actuation (ProAir HFA) 2 puffs PO Q6H PRN ciprofloxacin HCl (Cipro) 250 mg PO BID cyclobenzaprine 10 mg PO TID PRN ibuprofen 600 mg PO Q8H PRN lisinopril 10 mg PO DAILY naproxen (Naprosyn) 500 mg PO BID PRN omeprazole 20 mg PO DAILY Tobacco use date assessed: 01/30/24 Dental Screening Dental Screen Date: 01/30/24 HPI follow up HPI Details asthma on rx; doing well; compliant [facility] Medical History Screening for prostate cancer Screening for diabetes mellitus Hypertension Otitis media Surgical History No pertinent past surgical history Family History Father No problems noted. Mother Breast cancer Diabetes Brother Diabetes Hypertension Social History Housing: Apartment Alcohol intake: current Alcohol intake frequency: a few times a week Alcohol type: beer Patient Tobacco Use Status: Current everyday Tobacco user Tobacco use type: Cigarette Cigarettes Per Day: 7 e-Cigarette/Vaping Use: Never Used Second Hand Smoke Exposure: No service: No Current occupational status: employed and disabled Cognitive needs: No Hearing needs: No Vision needs: No Questionnaire Thrive Questionnaire Date Thrive assessed: 01/06/24 BARRY-7 AMB Questionnaire BARRY-7 Date BARRY - 7 assessed: 01/06/24 Source: Developed by Drs. Gentry Cruz, Sarah Mcdermott, Gabriel Austin and colleagues, with an educational michael from [employer]. Review of Systems Const Denies chills, Denies headache(s) and Denies weight loss ENT Denies headache(s) Card Denies chest pain, Denies syncope, Denies irregular heart rhythm and Denies dyspnea Resp Denies chest congestion, Denies cough and Denies dyspnea GI Denies abdominal pain, Denies change in stool character, Denies nausea and Denies vomiting Musc Denies deformity and Denies joint swelling Neuro Denies syncope and Denies headache(s) Physical exam (Primary Care) Vital Signs: Last Vital Signs Pulse 67 05/07/24 10:46 BP 134/80 05/07/24 10:46 Pulse Ox 98 05/07/24 10:46 Oxygen Delivery Method Room Air 05/07/24 10:46 BMI result Body Mass Index 26.1 Tobacco/Smoking Status: Tobacco use Status Tobacco use date assessed 01/30/24 05/07/24 10:47 Patient Tobacco Use Status Current everyday Tobacco 05/07/24 10:47 Tobacco use type Cigarette 05/07/24 10:47 e-Cigarette/Vaping Use Never Used 05/07/24 10:47 Thrive Assessment: Date of Thrive Assessment Date Thrive assessed 01/06/24 05/07/24 10:47 Const General: cooperative, comfortable, no acute distress and alert Neck Neck: Yes no lymphadenopathy Thyroid: Thyroid normal Resp Effort & Inspection: normal respiratory effort Auscultation: clear to auscultation bilaterally Percussion: percussion normal Cardio Jugular venous distension: no JVD Palpation: normal PMI Rate: regular rate Rhythm: regular rhythm Heart sounds: S1 normal heart sound present and S2 normal heart sound present GI Inspection: Yes normal to inspection Palpation (GI): No hepatosplenomegaly present Skin General skin exam: no rashes or lesions noted Extrem General: Yes no clubbing, cyanosis or edema Assessment and Plan Assessment & Plan (1) Asthma: Code(s): J45.909 - Unspecified asthma, uncomplicated Plan: stable; same rx Coding Level of Care Code Est Pt Level 3 (22284) Diagnoses Asthma J45.909
== END 2024-05-07 10:58 | disposition home or self-care (01) ==
PROVIDERS: PCP Internal Medicine; Visit Provider Internal Medicine
DX: J45.909 Unspecified asthma, uncomplicated (principal)
CPT/HCPCS: 99213

== ENCOUNTER 2024-07-12 13:38 | Outpatient (AMB) | payer MEDICARE, SELFPAY ==
[2024-07-12 13:41] VITALS: BP 142/86; PULSE 80; O2SAT 95; BMI 25.8
--- NOTE | 2024-07-12 13:41 | AM.OFFVISMDC ---
Intake Vital Signs 07/12/24 13:41 Height 5 ft 5 in Weight 155 lb BMI 25.8 BP 142/86 H Blood Pressure Location Lt brachial Position Sitting Pulse 80 Pulse Source Pulse Oximeter Pulse Oximetry (%) 95 Oxygen Delivery Method Room Air Intake Visit Reasons: AWV Surgical Coordinator Required: No Accompanied by: Self / Same As Patient Allergies Penicillins [PENICILLINS] Allergy (Severe, Verified 07/12/24 13:44) ANAPHYLAXIS SEAFOOD Allergy (Severe, Uncoded 07/12/24 13:44) HIVES penincillin Allergy (Unknown, Uncoded 07/12/24 13:44) Immunodeficiency Medication List - Last Reconciled 07/13/24 by Demarco Kelly MD albuterol sulfate 90 mcg/actuation (ProAir HFA) 2 puffs PO Q6H PRN ciprofloxacin HCl (Cipro) 250 mg PO BID cyclobenzaprine 10 mg PO TID PRN ibuprofen 600 mg PO Q8H PRN lisinopril 10 mg PO DAILY naproxen (Naprosyn) 500 mg PO BID PRN omeprazole 20 mg PO DAILY HPI AWV HPI Details HTN and asthma; has bipolar disorder and trying to see mental health; currently homeless [facility] Medical History Screening for prostate cancer Screening for diabetes mellitus Hypertension Otitis media Surgical History No pertinent past surgical history Family History Father No problems noted. Mother Breast cancer Diabetes Brother Diabetes Hypertension Social History Housing: Apartment Alcohol intake: current Alcohol intake frequency: a few times a week Alcohol type: beer Patient Tobacco Use Status: Current everyday Tobacco user Tobacco use type: Cigarette Cigarettes Per Day: 7 e-Cigarette/Vaping Use: Never Used Second Hand Smoke Exposure: No service: No Current occupational status: employed and disabled Cognitive needs: No Hearing needs: No Vision needs: No Questionnaire Medicare Wellness Checkup What gender do you identify with?: male During the past 4 weeks, how much have you been bothered by emotional problems such as feeling anxious, depressed, irritable, sad or downhearted, and blue?: extremely During the past 4 weeks, has your physical & emotional health limited your social activities with family, friends, neighbors, or groups?: quite a bit During the past 4 weeks, how much bodily pain have you generally had?: moderate pain During the past 4 weeks, was someone available to help you if you needed & wanted help?: yes, a little During the past 4 weeks, what was the hardest physical activity you could do for at least 2 minutes?: moderate Can you get to places out of walking distance without help? (For eg., can you travel alone on buses, taxis or drive your car?): Yes Can you go shopping for groceries or clothes without someone's help?: Yes Can you prepare your own meals?: Yes Can you do your housework without help?: Yes Because of any health problems, do you need the help of another person with your personal care needs such as eating, bathing, dressing or getting around the house?: No Can you handle your own money without help?: Yes During the past 4 weeks, how would you rate your health in general?: fair During the past 4 weeks how have things been going for you?: pretty bad Are you having difficulties driving your car?: no Do you always fasten your seat belt when you are in a car?: yes, usually During past 4 weeks, have you been bothered by the following: never: Falling or dizzy when standing up, Sexual problems?, Teeth or denture problems?, Problems using the telephone? and Tiredness or fatigue? and often: Trouble eating well? Have you fallen 2 or more times in the past year?: No Are you afraid of falling?: No Are you a smoker?: yes, and I might quit During the past 4 weeks, how many drinks of wine, beer, or other alcoholic beverages did you have?: 10 or more per week Do you exercise for about 20 minutes 3 or more times a week?: yes, most of the time Have you been given information to help with the following?: yes: Hazards in your house that might hurt you? and yes: Keeping track of your medications? How often do you have trouble taking medicines the way you have been told to take them?: I always take medicine as prescribed How confident are you that you can control & manage most of your health problems?: somewhat confident What is your race?: or origin or descent Mini Mental State Exam (MMSE) Orientation What is the (year) (season) (date) (day) (month)?: year, season, date, day and month Where are we (state) (county) (town or city) (hospital) (floor)?: state, county, town or city, hospital/clinic and floor Registration Name of 3 unrelated objects clearly and slowly, then ask patient to repeat all 3 of them. (1st repeat determines score. Make sure they can repeat all three): object 1, object 2 and object 3 Attention & Calculation (CHOOSE ONE) Ask pt to begin with 100 & count backward by 7. Stop after 5 repeats. If pt cannot ask them to spell the word WORLD backward.: 93 Spell WORLD backwards (DLROW): 3 letters Recall Ask patient to repeat the 3 items from question #3.: object 1 Score Score: 18 Activity of Daily Living Bathing - sponge bath, tub bath or shower: receives no assistance (gets in/out by self, if usual bathing means Dressing - getting clothes from closets & drawers, including inner/outer garments & fasteners.: gets clothes & gets completely dressed without help Toileting - going to the 'toilet room' for urine/bowel elimination & cleaning self/arranging clothes: goes to toilet room, cleans self, arranges clothes without help Transfer: moves in & out of bed and chair without help (may use support object) Continence: controls urination/bowel movements completely by self Feeding: feeds self without help Total Score: 0 Information obtained from: patient Using telephone: independent Traveling: independent Shopping: independent Preparing meals: independent Housework: independent Taking medicine: independent Managing money: independent PHQ-9 Over the last 2 weeks, how often have you been bothered by any of the following problems? 1. Little interest or pleasure in doing things: nearly every day 2. Feeling down, depressed, or hopeless: nearly every day 3. Trouble falling or staying asleep, or sleeping too much: nearly every day 4. Feeling tired or having little energy: nearly every day 5. Poor appetite or overeating: nearly every day 6. Feeling bad about yourself - or that you are a failure or have let yourself or your family down: nearly every day 7. Trouble concentrating on things, such as reading the newspaper or watching television: nearly every day 8. Moving or speaking so slowly that other people could have noticed. Or the opposite - being so fidgety or restless that you have been moving around a lot more than usual: nearly every day 9. Thoughts that you would be better off or of hurting yourself in some way: nearly every day Total score: 27 Depression Screening Interpretation: Positive Depression Screening Follow-up: Existing condition, In treatment and Community Mental Health Worker F/U Depression Screening Done: Yes 91439 - PHQ-9 Billing: Yes Source: Developed by Drs. Gentry Cruz, Sarah Mcdermott, Gabriel Austin and colleagues, with an educational michael from [employer]. Review of Systems Const Denies chills, Denies fatigue, Denies headache(s) and Denies weight loss Eyes Denies change in vision, Denies diplopia and Denies eye pain ENT Reports Normal hearing present, Denies vertigo, Denies dizziness, Denies headache(s) and Denies nasal discharge Card Denies chest pain, Denies rapid heart rate and Denies dyspnea on exertion Resp Denies chest congestion, Denies cough, Denies pain with cough and Denies dyspnea on exertion GI Denies abdominal pain, Denies hematochezia and Denies change in bowel habits Musc Denies myalgias, Denies arthralgias and Denies joint swelling Skin/Breast Denies lesions and Denies unusual bruising Neuro Reports Normal hearing present, Denies vertigo, Denies dizziness, Denies headache(s) and Denies focal weakness Endo Denies fatigue Physical Exam Vital Signs: Last Vital Signs Pulse 80 07/12/24 13:41 BP 142/86 H 07/12/24 13:41 Pulse Ox 95 07/12/24 13:41 Oxygen Delivery Method Room Air 07/12/24 13:41 BMI result Body Mass Index 25.8 Neuro Cranial nerves: Yes Normal hearing present Assessment & Plan Assessment & Plan (1) Encounter for initial annual wellness visit (AWV) in Medicare patient: Code(s): Z00.00 - Encounter for general adult medical examination without abnormal findings Plan: rhomberg and whisper tests normal; form given to patient (2) Homeless: Code(s): Z59.00 - Homelessness unspecified Plan: community navigation consulted (3) Asthma: Code(s): J45.909 - Unspecified asthma, uncomplicated Plan: stable; same rx (4) Hypertension: Code(s): I10 - Essential (primary) hypertension Qualifiers: Hypertension type: unspecified Qualified Code(s): I10 - Essential (primary) hypertension Plan: stable; same rx (5) Bipolar disorder: Code(s): F31.9 - Bipolar disorder, unspecified Qualifiers: Active/Remission status: remission status unspecified Qualified Code(s): F31.9 - Bipolar disorder, unspecified Plan: refer Orders: Referrals Psychiatry Outpatient Consultation Service F31.9 - Bipolar disorder, unspecified Nurse Navigator Referral Z59.00 - Homelessness unspecified Quality Reporting (2019) Depression/Bipolar (159/160/161/177) PHQ-9: Total score: 27 Coding Level of Care Code Medicare First (G0438) Diagnoses Encounter for initial annual wellness visit (AWV) in Medicare patient Z00.00 Homeless Z59.00 Asthma J45.909 Hypertension, unspecified type I10 Hypertension type: unspecified Bipolar affective disorder, remission status unspecified F31.9 Active/Remission status: remission status unspecified
== END 2024-07-12 14:05 | disposition home or self-care (01) ==
LOC: HO.HMGH 13:38
PROVIDERS: PCP Internal Medicine; Visit Provider Internal Medicine
DX: Z00.00 Encounter for general adult medical examination without abnormal findings (principal); J45.909 Unspecified asthma, uncomplicated; F31.9 Bipolar disorder, unspecified; Z59.00 Homelessness unspecified; I10 Essential (primary) hypertension
CPT/HCPCS: G0438

== ENCOUNTER → 2024-07-23 11:01 | Outpatient (BNVA) | payer MEDICARE, SELFPAY | PROVIDERS: PCP Internal Medicine ==

== ENCOUNTER 2024-09-17 10:33 | Outpatient (REF) | payer OTHER, SELFPAY ==
[2024-09-17 11:04] LABS: Blood Urea Nitrogen 22 mg/dL (9-16); Estimated Glomerular Filt Rate > 60
== END 2024-09-17 10:34 | disposition home or self-care (01) ==
LOC: HO.LAB 10:33
PROVIDERS: PCP Internal Medicine; Visit Provider Otolaryngology
DX: C09.0 Malignant neoplasm of tonsillar fossa (principal)
CPT/HCPCS: 36415; 82565; 84520

== ENCOUNTER 2024-12-18 10:43 | Outpatient (AMB) | payer OTHER, SELFPAY ==
--- NOTE | 2024-12-18 11:05 | A.OFFPC_ITS ---
Vital Signs 12/18/24 11:06 Height 5 ft 5 in Weight 162 lb 8 oz BMI 27.0 BP 120/72 Blood Pressure Location Lt brachial Position Sitting Pulse 86 Pulse Source Pulse Oximeter Temp 97.1 F Temp Source Temporal Artery Scan Pulse Oximetry (%) 98 Oxygen Delivery Method Room Air Intake Visit Reasons: Skin Infection [employer] Carpets Required: No Accompanied by: Self / Same As Patient Allergies Penicillins [PENICILLINS] Allergy (Severe, Verified 12/18/24 11:10) ANAPHYLAXIS SEAFOOD Allergy (Severe, Uncoded 12/18/24 11:10) HIVES penincillin Allergy (Unknown, Uncoded 12/18/24 11:10) Immunodeficiency Tobacco use date assessed: 12/18/24 Dental Screening Dental Screen Date: 12/18/24 Did you have a dental visit in the last 12 months?: No Did you have a dental problem in the last 6 months where you did not have access to dental care?: No Was dental information given to patient?: Patient has dentist HPI Skin Infection HPI Details has several spots on his legs consistent with tinea corporis PFSH Medical History Screening for prostate cancer Screening for diabetes mellitus Hypertension Otitis media Surgical History No pertinent past surgical history Family History Father No problems noted. Mother Breast cancer Diabetes Brother Diabetes Hypertension Social History Housing: Apartment Alcohol intake: current Alcohol intake frequency: a few times a week Alcohol type: beer Patient Tobacco Use Status: Former Tobacco user (quit three week ago before radiation treatment. ) Tobacco use type: Cigarette Cigarettes Per Day: 7 e-Cigarette/Vaping Use: Never Used Second Hand Smoke Exposure: No service: No Current occupational status: employed and disabled Cognitive needs: No Hearing needs: No Vision needs: No Questionnaire PHQ-9 Over the last 2 weeks, how often have you been bothered by any of the following problems? 1. Little interest or pleasure in doing things: nearly every day 2. Feeling down, depressed, or hopeless: more than half the days 3. Trouble falling or staying asleep, or sleeping too much: not at all 4. Feeling tired or having little energy: nearly every day 5. Poor appetite or overeating: more than half the days 6. Feeling bad about yourself - or that you are a failure or have let yourself or your family down: several days 7. Trouble concentrating on things, such as reading the newspaper or watching television: more than half the days 8. Moving or speaking so slowly that other people could have noticed. Or the opposite - being so fidgety or restless that you have been moving around a lot more than usual: not at all 9. Thoughts that you would be better off or of hurting yourself in some way: more than half the days Total score: 15 84511 - PHQ-9 Billing: Yes Source: Developed by Drs. Gentry Cruz, Sarah Mcdermott, Gabriel Austin and colleagues, with an educational michael from [employer]. Thrive Questionnaire Date Thrive assessed: 12/18/24 I am a: Patient What is your living situation today?: I have a steady place to live Within the past 12 months, did the food you bought not last and you didn't have the money to get more?: Never true Within the past 12 months, did you worry whether your food would run out before you got money to buy more?: Never true Do you have trouble paying for medicines?: No Do you have trouble getting transportation to medical appointments?: No Do you have trouble paying your heating and electricity bill?: No Do you have trouble taking care of your child, family member or friend?: No Do you have trouble with day-to-day activities such as bathing, preparing meals, shopping, managing finances, etc.?: No Are you currently unemployed and looking for a job?: No Are you interested in more education?: No Please select the resources that you would like help with: None Currently or been in a relationship where the following occur: No concerns reported THRIVE Score: 0 AUDIT C Alcohol Use Questionnaire (AUDIT-C) 1. How often do you have a drink containing alcohol?: 4 or more times a week 2. How many drinks containing alcohol do you have on a typical day when you are drinking?: 3 or 4 3. How often do you have six or more drinks on one occasion?: Never Total Score: 5 BARRY-7 AMB Questionnaire BARRY-7 Date BARRY - 7 assessed: 12/18/24 Feeling nervous, anxious, or on edge: 2 = More than half the days Not being able to stop or control worryin = Several days Worrying too much about different things: 1 = Several days Trouble relaxin = Several days Being so restless that it is hard to sit still: 2 = More than half the days Becoming easily annoyed or irritable: 2 = More than half the days Feeling afraid as if something awful might happen: 0 = Not at all Total BARRY-7 score (0-4 normal; 5-9 mild; 10-14 moderate; 15-21 severe): 9 Source: Developed by Drs. Gentry Cruz, Sarah Mcdermott, Gabriel Austin and colleagues, with an educational michael from [employer]. BARRY-7 Assessment Billing BARRY-7 Assessment Tool: BARRY-7 Assessment 78509 Review of Systems Const Denies chills, Denies headache(s) and Denies weight loss ENT Denies headache(s) Card Denies chest pain, Denies syncope, Denies irregular heart rhythm and Denies dyspnea Resp Denies chest congestion, Denies cough and Denies dyspnea GI Denies abdominal pain, Denies change in stool character, Denies nausea and Denies vomiting Musc Denies deformity and Denies joint swelling Neuro Denies syncope and Denies headache(s) Physical exam (Primary Care) Vital Signs: Last Vital Signs Temp 97.1 F 12/18/24 11:06 Pulse 86 12/18/24 11:06 BP 120/72 12/18/24 11:06 Pulse Ox 98 12/18/24 11:06 Oxygen Delivery Method Room Air 12/18/24 11:06 BMI result Body Mass Index 27.0 Tobacco/Smoking Status: Tobacco use Status Tobacco use date assessed 12/18/24 12/18/24 11:11 Patient Tobacco Use Status Former Tobacco user (quit 12/18/24 11:11 three week ago before radiation treatment. ) Tobacco use type Cigarette 12/18/24 11:11 e-Cigarette/Vaping Use Never Used 12/18/24 11:11 PHQ-9: PHQ-9 Score PHQ-9: Total score 15 12/18/24 11:11 Thrive Assessment: Date of Thrive Assessment Date Thrive assessed 12/18/24 12/18/24 11:11 Currently or been in a relationship where the following occur: No concerns reported Const General: cooperative, comfortable, no acute distress and alert Neck Neck: Yes no lymphadenopathy Thyroid: Thyroid normal Resp Effort & Inspection: normal respiratory effort Auscultation: clear to auscultation bilaterally Percussion: percussion normal Cardio Jugular venous distension: no JVD Palpation: normal PMI Rate: regular rate Rhythm: regular rhythm Heart sounds: S1 normal heart sound present and S2 normal heart sound present GI Inspection: Yes normal to inspection Palpation (GI): No hepatosplenomegaly present Skin Other: tinea corporis on legs Extrem General: Yes no clubbing, cyanosis or edema Coding Level of Care Code Est Pt Level 3 (69964) Diagnoses Tinea corporis B35.4 Additional Codes BARRY-7 Assessment Billing - BARRY-7 Assessment Tool: BARRY-7 Assessment [id number] ([id number]) PHQ-9 - 22333 - PHQ-9 Billing: Yes ([id number]) Assessment & Plan Assessment & Plan (1) Tinea corporis: Code(s): B35.4 - Tinea corporis Plan: rx sent Medications: New clotrimazole-betamethasone 1-0.05 % 1 appl topical BID 45 grams 0RF 2 weeks
[2024-12-18 11:06] VITALS: BP 120/72; PULSE 86; TEMP 36.2; O2SAT 98; BMI 27.0
== END 2024-12-18 11:27 | disposition home or self-care (01) ==
PROVIDERS: PCP Internal Medicine; Visit Provider Internal Medicine
DX: B35.4 Tinea corporis (principal)

== ENCOUNTER → 2024-12-18 10:43 | Outpatient (BNVA) | payer OTHER, SELFPAY | PROVIDERS: PCP Internal Medicine; Visit Provider Internal Medicine | DX: B35.4 Tinea corporis (principal) | CPT/HCPCS: 96127; 99212 ==

== ENCOUNTER 2025-01-18 14:05 | Outpatient (AMB) | payer OTHER, SELFPAY ==
--- NOTE | 2025-01-18 14:07 | MHC.PC.OV ---
Vital Signs 01/18/25 14:08 Height 5 ft 5 in Weight 147 lb 2 oz BMI 24.5 BP 110/68 Blood Pressure Location Lt brachial Position Sitting Pulse 74 Pulse Source Pulse Oximeter Temp 97.1 F Temp Source Temporal Artery Scan Pulse Oximetry (%) 94 Oxygen Delivery Method Room Air Intake Visit Reasons: Stomach gas issues Ham Pumper Required: No Shredded Filler Cigar Maker Machine: Not Required per policy Accompanied by: Self / Same As Patient Allergies Penicillins [PENICILLINS] Allergy (Severe, Verified 01/18/25 14:08) ANAPHYLAXIS SEAFOOD Allergy (Severe, Uncoded 01/18/25 14:08) HIVES penincillin Allergy (Unknown, Uncoded 01/18/25 14:08) Immunodeficiency Tobacco use date assessed: 01/18/25 Dental Screening Dental Screen Date: 12/18/24 HPI Stomach gas issues HPI Details suprapubic pain and cramps for a week PFSH Medical History Screening for prostate cancer Screening for diabetes mellitus Hypertension Otitis media Surgical History No pertinent past surgical history Family History Father No problems noted. Mother Breast cancer Diabetes Brother Diabetes Hypertension Social History Housing: Apartment Alcohol intake: current Alcohol intake frequency: a few times a week Alcohol type: beer Patient Tobacco Use Status: Former Tobacco user (quit three week ago before radiation treatment. ) Tobacco use type: Cigarette Cigarettes Per Day: 7 e-Cigarette/Vaping Use: Never Used Second Hand Smoke Exposure: No service: No Current occupational status: employed and disabled Cognitive needs: No Hearing needs: No Vision needs: No Questionnaire Thrive Questionnaire Date Thrive assessed: 12/18/24 BARRY-7 AMB Questionnaire BARRY-7 Date BARRY - 7 assessed: 12/18/24 Source: Developed by Drs. Gentry Cruz, Sarah Mcdermott, Gabriel Austin and colleagues, with an educational michael from [employer]. Review of Systems Const Denies chills, Denies headache(s) and Denies weight loss ENT Denies headache(s) Card Denies chest pain, Denies syncope, Denies irregular heart rhythm and Denies dyspnea Resp Denies chest congestion, Denies cough and Denies dyspnea GI Denies abdominal pain, Denies change in stool character, Denies nausea and Denies vomiting Musc Denies deformity and Denies joint swelling Neuro Denies syncope and Denies headache(s) Physical exam (Primary Care) Vital Signs: Last Vital Signs Temp 97.1 F 01/18/25 14:08 Pulse 74 01/18/25 14:08 BP 110/68 01/18/25 14:08 Pulse Ox 94 01/18/25 14:08 Oxygen Delivery Method Room Air 01/18/25 14:08 BMI result Body Mass Index 24.5 Tobacco/Smoking Status: Tobacco use Status Tobacco use date assessed 01/18/25 01/18/25 14:12 Patient Tobacco Use Status Former Tobacco user (quit 01/18/25 14:12 three week ago before radiation treatment. ) Tobacco use type Cigarette 01/18/25 14:12 e-Cigarette/Vaping Use Never Used 01/18/25 14:12 Thrive Assessment: Date of Thrive Assessment Date Thrive assessed 12/18/24 01/18/25 14:12 Const General: cooperative, comfortable, no acute distress and alert Neck Neck: Yes no lymphadenopathy Thyroid: Thyroid normal Resp Effort & Inspection: normal respiratory effort Auscultation: clear to auscultation bilaterally Percussion: percussion normal Cardio Jugular venous distension: no JVD Palpation: normal PMI Rate: regular rate Rhythm: regular rhythm Heart sounds: S1 normal heart sound present and S2 normal heart sound present GI Inspection: Yes normal to inspection Palpation (GI): No hepatosplenomegaly present Skin General skin exam: no rashes or lesions noted Extrem General: Yes no clubbing, cyanosis or edema Coding Level of Care Code Est Pt Level 3 (92217) Diagnoses Suprapubic abdominal pain R10.2 Assessment & Plan Assessment & Plan (1) Suprapubic abdominal pain: Code(s): R10.2 - Pelvic and perineal pain Plan: US ordered Orders: Orders US pelvic complete Today R10.2 - Pelvic and perineal pain Medications: New tramadol 50 mg PO Q8H PRN 20 tabs 0RF pain
[2025-01-18 14:08] VITALS: BP 110/68; PULSE 74; TEMP 36.2; O2SAT 94; BMI 24.5
--- OUTSIDE RECORDS SUMMARY | 2025-01-18 15:47 | XMS_ITS | Data Portability ---
Author Organization [place] - [facility], Allergy Address [address] [place] [id number] Care Team Providers Care Media Production Manager Name Role Phone CHAPARRO GIA Primary Care Provider Assessment Encounter Date Assessment Date Assessment LastModified by Organization Details LastModified Time 09/21/2024 09/21/2024 Left anterior tonsil pillar with 3 x 4 cm exophytic mass most likely representing a squamous cell carcinoma. Biopsy was taken today. We may review results in approximately 1 week with a telehealth. His CT neck with contrast as ordered by Dr. Elder is still pending. [email or web address] Not available 09/21/2024 16:29:15 09/28/2024 09/28/2024 New diagnosis of left tonsil squamous cell carcinoma. Referral to radiation and medical oncology. Awaiting CT neck with contrast as previously ordered. Will also request PET/CT for further staging. I do not believe he is a surgical candidate given the size of the primary tumor site. He has made efforts at smoking cessation. [email or web address] Not available 09/28/2024 09:28:04 Plan of Treatment Reminders Order Date Submit Date Provider Last Modified By Organization Details Last Modified Time Details Appointments None recorded. Lab surgical pathology study - left tonsil 2023 PAKO [facility] (Centralized Electronic Ordering - All Locations), Patient Can Go To The Location Of Their Choice, [id number] 11:21:49 Referral radiation oncologist referral - Referral for Primary malignant neoplasm of tonsil 2023 PAKO Nicholson MD, [address] [place], [address], 12/19/202 4 16:03:46 medical oncologist referral - Referral for Primary malignant neoplasm of tonsil. PET-CT ordered. Thank you 2023 024 [email or web address] Colin Wallace MD, [address] [place], [address], 4 16:11:21 Procedures None recorded. Surgeries None recorded. Imaging PET-CT, skull base to mid-thigh scan 2023 024 [email or web address] Not available 08:58:08 Medication Orders None recorded. Patient TargetsNo targets recorded. Patient InstructionsNo instructions recorded. Reason for Referral Referral for Primary maligna nt neoplasm of tonsil Referring Physician: Calvin Kathleen, Otolaryngology, Encounter Date: 09/28/2024 Referral for Primary maligna nt neoplasm of tonsil. PET-CT ordered. Thank you Referring Physician: Calvin Kathleen, Otolaryngology, Encounter Date: 09/28/2024 Results Created Date Observation Date Name Description Value Unit Range Abnormal Flag Note LastModifiedBy Organization Detail LastModifiedTime 10/08/20 24 10/02/2024 CT, neck, soft tissu e, w/ contr ast No observ ation record ed. [email or web address] [facility] [address], [address], 10/10/2024 15:31:12 11/09/19 25 11/09/2024 US, thyro id No observ ation record ed. [email or web address] [facility] [address], [address], 11/12/2024 13:38:02 Result Notes None recorded. Problems Name Problem SNOMED Code Status Onset Date Resolution Date Notes Provider Name and Address Organization Details Recorded Time Neoplasm of uncertain behavior of tonsil 15479356 Active CALVIN KATHLEEN MD [address] [place] [address], [phone] , [facility] - [facility] 4 16:20:02 Primary malignant neoplasm of tonsil 702613455 Active 024 CALVIN KATHLEEN MD [address] [address], [place], [phone], [place] - [facility] 09:27:13 Thyroid nodule 973874622 Active 024 CALVIN KATHLEEN MD [address] [address], [place], [phone], [place] [facility] 12:27:08 Problem Notes None recorded. Procedures Surgical History Date Name Laterality Status Provider Name and Address Organization Details Recorded Time Telehealth completed CALVIN KATHLEEN MD [address] [place] [address], [phone], [facility] 09/28/2024 09:27:00 Biopsy Oropharynx completed CALVIN KATHLEEN MD [address] [place] [address], [phone], [facility] 09/21/2024 16:19:47 Imaging Results Imaging Date Name Status LastModified by Organiz ation Details LastModified Time 10/02/2024 CT, neck, soft tissue, w/ contrast completed [email or web address] [facility] [address], [address], 10/10/2024 15:31:12 11/09/2024 US, thyroid completed [email or web address] [facility] [address], [address], 11/12/2024 13:38:02 Procedure Notes None recorded. Medical Equipment None Reported. Allergies Allergen ID Allergen Name Allergen Category Reaction Reaction Severity Criticality Documentation Date Start Date Code Code System Note Provider Name and Address Organization Details Recorded Time 094621 Product containin g penicilli n (product) medicatio n Not available Not available Not available 09/21/2024 04570 8001 SNOMED [facility] 16:02:00 Medications Name Sig Start Date Stop Date Status Note LastModified by Organization Details LastModified Time prednisolone sodium phosphate 15 mg/5 mL (3 mg/mL) oral solution USE 1/3 OF A TEASPOONFUL ORALLY TWICE A DAY FOR 10 DAYS, GARGLE [employer] SWALLOW. active Not Available Not Available No t Available azithromycin 250 mg tablet TAKE 2 TABLETS ON FIRST DAY , THEN 1 TABLET DAILY FOR 4 DAYS active Not Available Not Available No t Available ciprofloxaci n 250 mg tablet TAKE ONE TABLET BY MOUTH TWICE A DAY active Not Available Not Available No t Available IBU 600 mg tablet TAKE ONE TABLET BY MOUTH EVERY 8 HOURS NEEDED FOR PAIN active Not Available Not Available No t Available lisinopril 10 mg tablet TAKE ONE TABLET BY MOUTH EVERY DAY active Not Available Not Available No t Available albuterol sulfate HFA 90 mcg/actuatio n aerosol inhaler INHALE TWO PUFFS BY MOUTH EVERY 6 HOURS NEEDED FOR BRONCHOSPAS M active Not Available Not Available No t Available Vitals Date Recorded Body height Body mass index (BMI) Body weight Provider Name and Address Organization Details Last Updated DateTime 09/21/2024 165.1 cm 25.8 kg/m2 15308.82 g Felicity Simon [place] - [facility] 09/21/2024 16:01:36 Social History None recorded. Functional Status None recorded. Mental Status None recorded. Family History Nothing Reported. Medical History No medical history recorded. Past Encounters Encounter ID Performer Location Encounter Start Date Encounter Closed Date Diagnosis/Indication Diagnosis SNOMED-CT Code Diagnosis ICD10 Code Diagnosis Note [id number] CALVIN KATHLEEN MD [facility] [address] [phone] 09/21/2024 15:11:53 09/21/2024 16:30:58 Neoplasm of uncertain behavior of tonsil 78756342 D37.05 [id number] CALVIN KATHLEEN MD [facility] [address] [address] 09/28/2024 16:58:55 10/01/2024 09:34:22 Primary malignant neoplasm of tonsil 425816457 C09.9 Health Concerns Section Related Observation LastModified by Organization Detai ls LastModified Time None Recorded Concern Status LastModified by Organization Details LastModified Time None Recorded Advance Directives Directive None Recorded Payers Encounter Date Sequence Insurance Name Policy Number Policy Knight Covered Member ID Knight Member ID Guarantor Name 09/21/2024 1 [facility] - DOS ON OR AFTER 2023 - ONE CARE (MEDICARE REPLACEMENT/ADV ANTAGE - HMO) Yohan Ling [id number] Yohan Ling 09/28/2024 1 [facility] [employer] - DOS ON OR AFTER 2023 - ONE CARE (MEDICARE REPLACEMENT/ADV ANTAGE - HMO) Yohan Ling [id number] Yohan Ling Notes Date Note Type Note Provider Name and Address Organization Details Recorded Time 09/21/2024 text/html Left tonsil massonset of tongue pain May Dr Elder noted ulcer left superior tonsil - requested imaging and referred out.CT neck is pending insurance approval work - [employer] at night CALVIN KATHLEEN MD [address] [place] [address], [phone], [place] - [facility] 09/21/2024 16:30:14 09/28/2024 text/html Left tonsil massonset of tongue pain May Dr Elder noted ulcer left superior tonsil - requested imaging and referred out.CT neck is pending insurance approval 09/21/24 chato Kathleen [place] [facility] [place] [employer] [place] [employer] [place] CALVIN KATHLEEN MD [address] [place] [address], [phone], [place] [facility] 09/28/2024 17:05:11
== END 2025-01-18 14:21 | disposition home or self-care (01) ==
LOC: HO.HMCH 14:05
PROVIDERS: PCP Internal Medicine; Visit Provider Internal Medicine
DX: R10.2 Pelvic and perineal pain (principal)

== ENCOUNTER → 2025-01-18 14:05 | Outpatient (BNVA) | payer OTHER, SELFPAY | PROVIDERS: PCP Internal Medicine; Visit Provider Internal Medicine | DX: R10.2 Pelvic and perineal pain (principal) | CPT/HCPCS: 99212 ==

== ENCOUNTER 2025-04-05 13:25 | Outpatient (AMB) | payer OTHER, SELFPAY ==
--- NOTE | 2025-04-05 13:33 | A.OFFPC_ITS ---
Vital Signs 04/05/25 13:34 Height 5 ft 5 in Weight 140 lb 6 oz BMI 23.4 BP 130/70 Blood Pressure Location Lt brachial Position Sitting Respiration 16 Pulse 71 Pulse Source Pulse Oximeter Temp 97.3 F Temp Source Temporal Artery Scan Pulse Oximetry (%) 98 Oxygen Delivery Method Room Air Intake Visit Reasons: ANAM from Dr. Kelly Intake Note: Patient is here today for ANAM from Dr Kelly Hospital Cleaner Required: No Preparation Supervisor Canning: Not Required per policy Accompanied by: Self / Same As Patient Allergies Penicillins [PENICILLINS] Allergy (Severe, Verified 04/05/25 13:38) ANAPHYLAXIS SEAFOOD Allergy (Severe, Uncoded 04/05/25 13:38) HIVES penincillin Allergy (Unknown, Uncoded 04/05/25 13:38) Immunodeficiency Medication List - Last Reconciled 04/05/25 by IAM Fine albuterol sulfate 90 mcg/actuation 2 puffs PO Q6H PRN clotrimazole-betamethasone 1-0.05 % 1 appl topical BID 2 weeks cyclobenzaprine 10 mg PO TID PRN ibuprofen 600 mg PO Q8H PRN lisinopril 10 mg PO DAILY naproxen (Naprosyn) 500 mg PO BID PRN omeprazole 20 mg PO DAILY tramadol 50 mg PO Q8H PRN Tobacco use date assessed: 04/05/25 Dental Screening Dental Screen Date: 12/18/[address] Kelly HPI Details The patient is a 54-year-old male presenting for transition of care from Dr. Kelly. Patient reported ongoing hernias that are extending into his scrotum. No evidence on exam. No over the patient is complaining of pain in his suprapubic region we will do an ultrasound to further evaluate. Left shoulder pain, patient ongoing for a while reports that he was supposed to have surgical intervention but then COVID came and they were no longer doing surgeries. He acknowledges inability to complete previous imaging due to work conflicts and transportation issues. He describes discomfort and hernia awareness primarily during defecation, with no significant pain. He also presents with a significant medical history of tonsillar cancer treated with recent radiation, resulting in persistent taste disturbances and an unintentional 42-pound weight loss since early this year. The patient self- manages oral symptoms using recommended mouthwash but experiences limitations on diet intake due to tongue blisters. A prior left shoulder rotator cuff injury has progressed, limiting shoulder movement and causing persistent pain aggravated by attempted lifting activities. The chronicity of his psychiatric and substance use history complicates his general management, with the patient providing insight into poor response to historic psychiatric pharmacotherapy. Additional chronic issues involve single left kidney functioning (born with), hypertension managed with lisinopril, and symptoms suggestive of left-sided carpal tunnel syndrome, all contributing to his complex, multifaceted health profile. Denies chest pain, SOB, heart palpitation or dizziness [facility] Medical History Screening for prostate cancer Screening for diabetes mellitus Hypertension Otitis media Surgical History No pertinent past surgical history Family History Father No problems noted. Mother Breast cancer Diabetes Brother Diabetes Hypertension Social History Housing: Apartment Alcohol intake: current Alcohol intake frequency: a few times a week Alcohol type: beer Patient Tobacco Use Status: Former Tobacco user (quit three week ago before radiation treatment. ) Tobacco use type: Cigarette Cigarettes Per Day: 7 e-Cigarette/Vaping Use: Never Used Second Hand Smoke Exposure: Yes service: No Current occupational status: employed and disabled Cognitive needs: No Hearing needs: No Vision needs: No Questionnaire PHQ-9 Over the last 2 weeks, how often have you been bothered by any of the following problems? 1. Little interest or pleasure in doing things: not at all 2. Feeling down, depressed, or hopeless: not at all 3. Trouble falling or staying asleep, or sleeping too much: not at all 4. Feeling tired or having little energy: not at all 5. Poor appetite or overeating: not at all 6. Feeling bad about yourself - or that you are a failure or have let yourself or your family down: not at all 7. Trouble concentrating on things, such as reading the newspaper or watching television: not at all 8. Moving or speaking so slowly that other people could have noticed. Or the opposite - being so fidgety or restless that you have been moving around a lot more than usual: not at all 9. Thoughts that you would be better off or of hurting yourself in some way: not at all Total score: 0 Depression Screening Interpretation: Negative Depression Screening Done: Yes Source: Developed by Drs. Gentry Cruz, Sarah Mcdermott, Gabriel Austin and colleagues, with an educational michael from [employer]. Thrive Questionnaire Date Thrive assessed: 03/11/25 I am a: Patient What is your living situation today?: I have a steady place to live Within the past 12 months, did the food you bought not last and you didn't have the money to get more?: Sometimes True Within the past 12 months, did you worry whether your food would run out before you got money to buy more?: Never true Do you have trouble paying for medicines?: No Do you have trouble getting transportation to medical appointments?: No Do you have trouble paying your heating and electricity bill?: No Do you have trouble taking care of your child, family member or friend?: No Do you have trouble with day-to-day activities such as bathing, preparing meals, shopping, managing finances, etc.?: No Are you currently unemployed and looking for a job?: Yes Are you interested in more education?: No Please select the resources that you would like help with: None Currently or been in a relationship where the following occur: No concerns reported THRIVE Score: 1 BARRY-7 AMB Questionnaire BARRY-7 Date BARRY - 7 assessed: 12/18/24 Source: Developed by Drs. Gentry Cruz, Sarah Mcdermott, Gabriel Austin and colleagues, with an educational michael from [employer]. Review of Systems Const Denies headache(s) Eyes Denies loss of vision ENT Denies vertigo, Denies dizziness, Denies headache(s), Denies sore throat and Reports other (loss of taste-post radiation) Card Denies chest pain, Denies leg edema and Denies lightheadedness Resp Denies cough, Denies hemoptysis and Denies wheezing GI Reports abdominal pain (suprapubic region), Denies melena, Denies constipation, Denies diarrhea and Denies vomiting Denies dysuria, Denies urinary frequency and Denies urinary urgency Musc Reports arthralgias (left shoulder), Denies joint swelling, Denies numbness and Denies tingling Neuro Denies Abnormal speech present, Denies behavioral changes, Denies vertigo, Denies dizziness, Denies headache(s), Denies loss of vision, Denies memory loss, Denies numbness and Denies tingling Psych Denies anxiety, Denies behavioral changes, Reports depression, Denies memory loss and Denies panic attacks Rasheed/Lymph Denies easy bleeding and Denies easy bruising Aller/Immun Denies wheezing Physical exam (Primary Care) Vital Signs: Last Vital Signs Temp 97.3 F 04/05/25 13:34 Pulse 71 04/05/25 13:34 Resp 16 04/05/25 13:34 BP 130/70 04/05/25 13:34 Pulse Ox 98 04/05/25 13:34 Oxygen Delivery Method Room Air 04/05/25 13:34 BMI result Body Mass Index 23.4 Tobacco/Smoking Status: Tobacco use Status Tobacco use date assessed 04/05/25 04/05/25 13:39 Patient Tobacco Use Status Former Tobacco user (quit 04/05/25 13:39 three week ago before radiation treatment. ) Tobacco use type Cigarette 04/05/25 13:39 e-Cigarette/Vaping Use Never Used 04/05/25 13:39 PHQ-9: PHQ-9 Score PHQ-9: Total score 0 04/05/25 13:39 Depression Screening Interpretation: Negative Thrive Assessment: Date of Thrive Assessment Date Thrive assessed 03/11/25 04/05/25 13:39 Currently or been in a relationship where the following occur: No concerns reported Const General: healthy appearing, no acute distress, alert and awake Nutritional Appearance: well nourished Orientation/consciousness: oriented to person, oriented to place and oriented to time HENMT Ears: TM's normal bilaterally General nose exam: Normal nasal mucous membranes and turbinates present Eyes Conjunctivae: conjunctivae normal Sclerae: sclerae normal Pupils: Equal, round and reactive pupils present Neck Neck: Yes no lymphadenopathy and Yes no JVD Thyroid: Thyroid normal Carotids: no bruits Resp Effort & Inspection: normal respiratory effort and not tachypneic Auscultation: no crackles, no rales, no rhonchi and no wheezes Cardio Rate: regular rate Rhythm: regular rhythm Heart sounds: no murmurs and normal S1 and S2 GI Palpation (GI): Soft to palpation, Tenderness to palpation present (GI) suprapubicly, no hepatomegaly and no splenomegaly Auscultation: normal bowel sounds Skin General skin exam: no rashes or lesions noted and dry skin Neuro General: oriented to person, oriented to place and oriented to time Cranial nerves: Yes Equal, round and reactive pupils present Speech: No Abnormal speech present Gait exam (Neuro): Normal gait present Motor exam (neuro): no tremor noted Extrem Right upper extremity: full ROM Left upper extremity: full ROM Right lower extremity: full ROM; no edema Left lower extremity: full ROM; no edema Psych Mental Status: mental status grossly normal Speech and movement: Normal speech and movement present Affect: normal affect Attitude: cooperative Thought process: Normal thought process present Coding Level of Care Code Est Pt Level 4 (82346) Diagnoses Left shoulder pain, unspecified chronicity M25.512 Chronicity: unspecified Suprapubic pain R10.2 Carpal tunnel syndrome of left wrist G56.02 Laterality: left Depression, unspecified depression type F32.9 Depression Type: unspecified Attention deficit hyperactivity disorder (ADHD), unspecified ADHD type F90.9 Attention deficit-hyperactivity disorder type: unspecified Anxiety F41.9 Bipolar affective disorder, remission status unspecified F31.9 Active/Remission status: remission status unspecified Hypertension, unspecified type I10 Hypertension type: unspecified Time Spent (min) 39 Assessment & Plan Assessment & Plan (1) Left shoulder pain: Code(s): M25.512 - Pain in left shoulder Category: Medical Qualifiers: Chronicity: unspecified Qualified Code(s): M25.512 - Pain in left shoulder Plan: Reports ongoing rotator cuff injury that was supposed to be repaired prior to COVID. Limited range of motion in left shoulder unable to lift arm all the way above head. Negative empty beer can test. We will send the patient for an x- ray of the left shoulder to further evaluate. (2) Suprapubic pain: Code(s): R10.2 - Pelvic and perineal pain Category: Medical Plan: Patient complain of ongoing hernias that he was supposed to have an ultrasound completed for. Stated that they called him and made an appointment but he missed the appointment. This test was ordered by his previous PCP who since has retired. No hernia noted on assessment, question reducible hernia. Patient reports that he mostly feels it when he is having a bowel movement. Tenderness in the suprapubic region. We will reorder the pelvic ultrasound to further evaluate. (3) Carpal tunnel syndrome: Code(s): G56.00 - Carpal tunnel syndrome, unspecified upper limb Category: Medical Qualifiers: Laterality: left Qualified Code(s): G56.02 - Carpal tunnel syndrome, left upper limb Plan: Patient reports that he was diagnosed with carpal tunnel but nothing else was done about this. However, this is not his primary concern at this time and wants to hold off for now. (4) Depression: Code(s): F32.9 - Major depressive disorder, single episode, unspecified Category: Medical Qualifiers: Depression Type: unspecified Qualified Code(s): F32.9 - Major depressive disorder, single episode, unspecified Plan: Encouraged CBT Patient reports that he used to see a therapist and a psychiatrist a while back, none of their interventions worked for him. States that he was on Depakote, Paxil in various other medications that made him feel like a zombie. Reports that he is self medicating with marijuana and alcohol. Per patient, he has been doing this without any issues with his liver because he drinks liquids with electrolytes after to counteract the alcohol. 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 Will a CMP to evaluate (5) ADHD: Code(s): F90.9 - Attention-deficit hyperactivity disorder, unspecified type Category: Medical Qualifiers: Attention deficit-hyperactivity disorder type: unspecified Qualified Code(s): F90.9 - Attention-deficit hyperactivity disorder, unspecified type Plan: Currently, no any treatments, but self-reports that he is all over the place. However, I would not advise treatment with the patient alcohol use. (6) Anxiety: Code(s): F41.9 - Anxiety disorder, unspecified Category: Medical Plan: Similarly, the patient is dealing with the issues on his own terms, smoking marijuana and drinking beer. Will continue to encourage cessation (7) Bipolar disorder: Code(s): F31.9 - Bipolar disorder, unspecified Category: Medical Qualifiers: Active/Remission status: remission status unspecified Qualified Code(s): F31.9 - Bipolar disorder, unspecified Plan: same as above (8) Hypertension: Code(s): I10 - Essential (primary) hypertension Category: Medical Qualifiers: Hypertension type: unspecified Qualified Code(s): I10 - Essential (primary) hypertension Plan: Systolic goal 120- 130 mm or less reinforced low salt diet continue lisinopril 10 mg daily Orders: Orders Comprehensive [place]. Panel Fast Today F31.9 - Bipolar disorder, unspecified, F32.9 - Major depressive disorder, single episode, unspecified, F41.9 - Anxiety disorder, unspecified, F90.9 - Attention-deficit hyperactivity disorder, unspecified type, G56.00 - Carpal tunnel syndrome, unspecified upper limb, I10 - Essential (primary) hypertension, R20.2 - Paresthesia of skin, Z00.00 - Encounter for general adult medical examination without abnormal findings Lipid Panel Today F31.9 - Bipolar disorder, unspecified, F32.9 - Major depressive disorder, single episode, unspecified, F41.9 - Anxiety disorder, unspecified, F90.9 - Attention-deficit hyperactivity disorder, unspecified type, G56.00 - Carpal tunnel syndrome, unspecified upper limb, I10 - Essential (primary) hypertension, R20.2 - Paresthesia of skin, Z00.00 - Encounter for general adult medical examination without abnormal findings UA CC w/rflx Micro + Cult Today F31.9 - Bipolar disorder, unspecified, F32.9 - Major depressive disorder, single episode, unspecified, F41.9 - Anxiety disorder, unspecified, F90.9 - Attention-deficit hyperactivity disorder, unspecified type, G56.00 - Carpal tunnel syndrome, unspecified upper limb, I10 - Essential (primary) hypertension, R20.2 - Paresthesia of skin, Z00.00 - Encounter for general adult medical examination without abnormal findings Vitamin D 25-OH Total Today F31.9 - Bipolar disorder, unspecified, F32.9 - Major depressive disorder, single episode, unspecified, F41.9 - Anxiety disorder, unspecified, F90.9 - Attention-deficit hyperactivity disorder, unspecified type, G56.00 - Carpal tunnel syndrome, unspecified upper limb, I10 - Essential (primary) hypertension, R20.2 - Paresthesia of skin, Z00.00 - Encounter for general adult medical examination without abnormal findings Complete Blood Count Auto Diff Today F31.9 - Bipolar disorder, unspecified, F32.9 - Major depressive disorder, single episode, unspecified, F41.9 - Anxiety disorder, unspecified, F90.9 - Attention-deficit hyperactivity disorder, unspecified type, G56.00 - Carpal tunnel syndrome, unspecified upper limb, I10 - Essential (primary) hypertension, R20.2 - Paresthesia of skin, Z00.00 - Encounter for general adult medical examination without abnormal findings TSH reflex Free T4 Today F31.9 - Bipolar disorder, unspecified, F32.9 - Major depressive disorder, single episode, unspecified, F41.9 - Anxiety disorder, unspecified, F90.9 - Attention-deficit hyperactivity disorder, unspecified type, G56.00 - Carpal tunnel syndrome, unspecified upper limb, I10 - Essential (primary) hypertension, R20.2 - Paresthesia of skin, Z00.00 - Encounter for general adult medical examination without abnormal findings US pelvic limited Today R10.2 - Pelvic and perineal pain XR shoulder LT min 2V Today M25.512 - Pain in left shoulder Medications: Refilled lisinopril 10 mg PO DAILY 90 tabs 2RF
[2025-04-05 13:34] VITALS: BP 130/70; PULSE 71; RESP 16; TEMP 36.3; O2SAT 98; BMI 23.4
== END 2025-04-05 14:17 | disposition home or self-care (01) ==
LOC: HO.HMCH 13:25
PROVIDERS: PCP Internal Medicine
DX: M25.512 Pain in left shoulder (principal); F31.9 Bipolar disorder, unspecified; R10.2 Pelvic and perineal pain; G56.02 Carpal tunnel syndrome, left upper limb; F90.9 Attention-deficit hyperactivity disorder, unspecified type; F41.9 Anxiety disorder, unspecified; I10 Essential (primary) hypertension

== ENCOUNTER → 2025-04-05 13:25 | Outpatient (BNVA) | payer OTHER, SELFPAY | PROVIDERS: PCP Internal Medicine | DX: Z76.89 Persons encountering health services in other specified circumstances (principal); M25.512 Pain in left shoulder; R10.2 Pelvic and perineal pain; G56.02 Carpal tunnel syndrome, left upper limb; F90.9 Attention-deficit hyperactivity disorder, unspecified type; F41.9 Anxiety disorder, unspecified; F31.9 Bipolar disorder, unspecified; I10 Essential (primary) hypertension; Z79.899 Other long term (current) drug therapy; Z13.31 Encounter for screening for depression | CPT/HCPCS: 99212 ==

== ENCOUNTER 2025-04-24 10:41 | Outpatient (REF) | payer OTHER, SELFPAY ==
--- NOTE | ~2025-04-24 | XR_ITS ---
EXAMINATION: XR SHOULDER, LEFT CLINICAL INFORMATION: M25.512 - Pain in left shoulder COMPARISON: None available. TECHNIQUE: AP external rotation, Grashey, scapular Y, and axillary views of the left shoulder. FINDINGS: The bones and soft tissues are normal. No fracture. Glenohumeral and acromioclavicular alignment is anatomic with normal joint space. Marginal osteophyte is visible in the inferior glenoid. Somewhat globular and granular calcifications are visible in the soft tissues of the axillary region. These could represent calcified lymph nodes. XR/XR shoulder LT min 2V IMPRESSION: No acute abnormality of the left shoulder. Suspected calcified axillary lymph nodes versus vascular. Electronically signed by: Marcio Mcpherson MD 04/24/2025 11:38 AM EDT
[2025-04-24 11:01] LABS: MANUAL DIFF FLAG NO
[2025-04-24 11:33] LABS: Basophils Absolute Auto 0.1 X10*3/uL (0.0-0.2); Basophils Percent Auto 1.2 % (0-2); Eosinophils Absolute Auto 0.2 X10*3/uL (0.0-0.4); Eosinophils Percent Auto 3.8 % (0-4); Hematocrit 45.7 % (42.0-52.0); Hemoglobin 15.2 g/dl (14.0-18.0); Imm Gran Abs Auto 0.01 X10*3/uL (0.00-0.03); Imm Gran Pct Auto 0.2 % (0.0-0.4); Lymphocytes Absolute Auto 1.1 X10*3/uL (1.2-4.9); Lymphocytes Percent Auto 20.5 % (20-40); Mean Corpuscular HGB Conc 33.3 g/dl (31.0-36.0); Mean Corpuscular Hemoglobin 29.2 pg (27.0-33.0); Mean Corpuscular Volume 87.7 fL (80.0-98.0); Mean Platelet Volume 8.7 fL (9.4-12.4); Monocytes Absolute Auto 0.5 X10*3/uL (0.1-1.2); Monocytes Percent Auto 8.8 % (2-11); Neutrophils Absolute Auto 3.4 x10*3/uL (2.0-8.3); Neutrophils Percent Auto 65.5 % (45-73); Platelet Count 270 X10*3/uL (160-400); Red Blood Count 5.21 X10*6/uL (4.60-5.80); Red Cell Distribution Width 13.3 % (11.0-16.0); White Blood Count 5.2 X10*3/uL (4.8-10.8)
[2025-04-24 11:52] LABS: Appearance Urine Clear; Color Urine Yellow; Glucose Urine UA Negative (Negative); Leukocyte Esterase Urine Negative (Negative); Nitrite Urine Negative (Negative); PH 5.5 (5.0-9.0); Specific Gravity - Urine 1.015 (1.005-1.025); UMIC TRIGGER UACC YES; Urine Blood Trace (Negative); Urine Ketones Negative (Negative); Urine Protein 100 (2+) mg/dL (Neg-Trace)
[2025-04-24 11:56] LABS: Bacteria Urine None Seen (None Seen); Hyaline Casts Urine 0-2 /LPF (0-2); RBC Urine 0-2 /HPF (0-2); Squamous Epithelial Cell Urine 0-2 /HPF (0-2); WBC Urine 0-5 /HPF (0-5)
[2025-04-24 12:15] LABS: Alanine Aminotransferase 22 U/L (0-40); Alkaline Phosphatase 70 U/L (39-117); Anion Gap 10 (12-20); Aspartate Amino Transferase 22 U/L (5-37); Bilirubin Total 1.4 mg/dL (0.0-1.0); Blood Urea Nitrogen 13 mg/dL (9-16); Calcium 9.5 mg/dL (8.4-10.2); Carbon Dioxide 28 mmol/L (22-29); Chloride 107 mmol/L (96-108); Cholesterol 210 mg/dL (<200); Estimated Glomerular Filt Rate > 60; Glucose Fasting 115 mg/dL (60-99); HDL Cholesterol 67 mg/dL (>40); LDL Cholesterol Calculated 124 mg/dL (<100); Potassium 4.8 mmol/L (3.3-5.1); Sodium 140 mmol/L (135-145); Triglycerides 95 mg/dL (<150)
--- OUTSIDE RECORDS SUMMARY | 2025-04-24 12:16 | XMS_ITS | Data Portability ---
Author Organization [place] - [facility], Allergy Address [address] [place] [id number] Care Team Providers Care Acoustical Installer Name Role Phone CHAPARRO GIA Primary Care [...] Go To The Location Of Their Choice, [id number] 11:21:49 Referral radiation oncologist referral - Referral for Primary malignant neoplasm of tonsil 2023 PAKO Nicholson MD, [address] [place], [address], 12/19/202 4 16:03:46 medical oncologist referral - Referral for Primary malignant neoplasm of tonsil. PET-CT ordered. Thank you 2023 024 [email or web address] Colin Wallace MD, [address] [place], [address], 4 16:11:21 Procedures None recorded. Surgeries None recorded. Imaging PET-CT, skull base to mid-thigh scan 2023 024 [email or web address] Not available 08:58:08 Medication Orders None recorded. [...] observ ation record ed. [email or web address] [facility] [place] [address], [address], 10/10/2024 15:31:12 11/09/19 25 11/09/2024 US, thyro id No observ ation record ed. [email or web address] [facility] [place] [address], [address], 11/12/2024 13:38:02 Result Notes None recorded. Problems Name Problem SNOMED Code Status Onset Date Resolution Date Notes Provider Name and Address Organization Details Recorded Time Neoplasm of uncertain behavior of tonsil 94162527 Active CALVIN KATHLEEN MD [address] [place] [address], [phone] , [facility] - [facility] 4 16:20:02 Primary malignant neoplasm of tonsil 587984867 Active 024 CALVIN KATHLEEN MD [address] [address], [place], [phone], [facility] 4 09:27:13 Thyroid nodule 822781394 Active 024 CALVIN KATHLEEN MD [address] [address], [place], [phone], [facility] 4 12:27:08 Problem Notes None recorded. Procedures Surgical History Date Name Laterality Status Provider Name and Address Organization Details Recorded Time 4 Telehealth completed CALVIN KATHLEEN MD [address] [place] [address], [phone], [facility] 09/28/2024 09:27:00 Biopsy Oropharynx completed CALVIN KATHLEEN MD [address] [place] [address], [phone], [facility] 09/21/2024 16:19:47 Imaging Results None recorded. Procedure Notes None recorded. Medical Equipment None Reported. Allergies Allergen ID Allergen Name Allergen Category Reaction Reaction Severity Criticality Documentation Date Start Date Code Code System Note Provider Name and Address Organization Details Recorded Time 552350 Product containin g penicilli n (product) medicatio n Not available Not available Not available 09/21/2024 61499 8001 SNOMED Felicity [facility] 4 16:02:00 Medications Name Sig Start Date Stop [...] Updated DateTime 09/21/2024 165.1 cm 25.8 kg/m2 38755.82 g Felicity Simon [place] - [facility] 09/21/2024 16:01:36 Social History None recorded. Functional Status None recorded. Mental Status None recorded. Family History Nothing Reported. Medical History No medical history recorded. Past Encounters Encounter ID Performer Location Encounter Start Date Encounter Closed Date Diagnosis/Indication Diagnosis SNOMED-CT Code Diagnosis ICD10 Code Diagnosis Note [id number] CALVIN KATHLEEN MD [facility] [address] [phone] 09/21/2024 15:11:53 09/21/2024 16:30:58 Neoplasm of uncertain behavior of tonsil 08713147 D37.05 [id number] CALVIN KATHLEEN MD [facility] [address] [address] 09/28/2024 16:58:55 10/01/2024 09:34:22 Primary malignant neoplasm of tonsil 514364986 C09.9 Health Concerns Section Related Observation LastModified by Organization Detai ls LastModified Time None Recorded Concern Status LastModified by Organization Details LastModified Time None Recorded Advance Directives Directive None Recorded Payers Insurance Date Sequence Insurance Name Policy Number Policy Knight Covered Member ID Knight Member ID Guarantor Name 10/01/2024 1 [facility] - DOS ON OR AFTER 2023 - ONE CARE (MEDICARE REPLACEMENT/ADV ANTAGE - HMO) Yohan Ling [id number] Yohan Ling 09/21/2024 2 [facility] - DOS ON OR AFTER 2023 - ONE CARE (MEDICARE REPLACEMENT/ADV ANTAGE - HMO) Yohan Ling [id number] Yohan Ling 09/14/2024 1 [facility] [employer] - DOS ON OR AFTER 2023 - ONE CARE (MEDICARE REPLACEMENT/ADV ANTAGE - HMO) Yohan Ling [id number] Yohan Ling 09/14/2024 1 [facility] - DOS ON OR AFTER 2023 - MEDICARE [place]AGE [place] (MEDICARE REPLACEMENT/ADV ANTAGE - PPO) Yohan Ling [id number] Yohan Ling 09/14/2024 1 [facility] [employer] - DOS ON OR AFTER 2023 - [employer] AND ONE CARE (MEDICARE REPLACEMENT/ADV ANTAGE - PPO) Yohan Ling [id number] Yohan Ling Notes Date Note Type Note Provider Name and Address Organization Details Recorded Time 09/21/2024 text/html Left tonsil massonset of tongue pain May Dr Elder noted ulcer left superior tonsil - requested imaging and referred out.CT neck is pending insurance approval work - [employer] at night CALVIN KATHLEEN MD [address] [place] [address], [phone], [facility] - [facility] 09/21/2024 16:30:14 09/28/2024 text/html Left tonsil massonset of tongue pain May Dr Elder noted ulcer left superior tonsil - requested imaging and referred out.CT neck is pending insurance approval 09/21/24 chato Kathleen left tonsil, [place] [facility] [place] [employer] [place] - [employer] CALVIN KATHLEEN MD [address] [place] [address],[address], [address], [place] - [facility] 09/28/2024 17:05:11
[2025-04-24 12:35] LABS: TSH reflex Free T4 0.94 uIU/mL (0.32-4.0); Vitamin D 25-OH Total 30.9 ng/mL (>30)
== END 2025-04-24 10:42 | disposition home or self-care (01) ==
LOC: HO.LAB 10:41
DX: R20.2 Paresthesia of skin (principal); F32.9 Major depressive disorder, single episode, unspecified; F90.9 Attention-deficit hyperactivity disorder, unspecified type; F41.9 Anxiety disorder, unspecified; I10 Essential (primary) hypertension; M25.512 Pain in left shoulder; Z00.00 Encounter for general adult medical examination without abnormal findings
CPT/HCPCS: 36415; 73030; 80053; 80061; 81001; 82306; 84443; 85025

== ENCOUNTER → 2025-04-24 11:03 | Outpatient (BNV) | payer OTHER, SELFPAY | PROVIDERS: Visit Provider Radiology Diagnostic Radiology | DX: M25.512 Pain in left shoulder (principal) | CPT/HCPCS: 73030 ==

== ENCOUNTER 2025-05-06 14:05 | Outpatient (REF) | payer OTHER, SELFPAY ==
--- NOTE | ~2025-05-06 | US_ITS ---
EXAMINATION: US PELVIS LIMITED HISTORY: R10.2 - Pelvic and perineal pain, suprapubic COMPARISON: There are no prior studies available for comparison. TECHNIQUE: Sonographic examination of the left inguinal region was performed. FINDINGS: There are 2 ovoid soft tissue masses measuring 1.8 x 1.1 x 1.4 cm and 2.1 x 0.8 x 1.4 cm which could represent lymph nodes. An elongated lymph node in the left inguinal region measures 4.4 x 0.6 x 0.8 cm. US/US pelvic limited IMPRESSION: Nonspecific ovoid soft tissue masses in the left inguinal region which could represent lymph nodes. Clinical correlation is recommended. Electronically signed by: Gentry Escalante MD 05/06/2025 02:54 PM EDT
--- OUTSIDE RECORDS SUMMARY | 2025-05-06 14:41 | XMS_ITS | Data Portability ---
Author Organization [place] - [facility], Allergy Address [address] [place] [phone] Care Team Providers Care Special Effects Designer Name Role Phone CHAPARRO GIA Primary Care [...] Go To The Location Of Their Choice, [address] 11:21:49 Referral radiation oncologist referral - Referral for Primary malignant neoplasm of tonsil 2023 024 PAKO Nicholson MD, [address] [place], [address], 4 16:03:46 medical oncologist referral - Referral for Primary malignant neoplasm of tonsil. PET-CT ordered. Thank you 2023 024 [email or web address] Colin Wallace MD, [address] [place], [address], 4 16:11:21 Procedures None recorded. Surgeries None recorded. Imaging PET-CT, skull base to mid-thigh scan 2023 024 Not available 08:58:08 Medication Orders None recorded. [...] observ ation record ed. [email or web address] [facility] [address], [address], 10/10/2024 15:31:12 11/09/19 25 11/09/2024 US, thyro id No observ ation record ed. [email or web address] [facility] [address], [address], 11/12/2024 13:38:02 Result Notes None recorded. Problems Name Problem SNOMED Code Status Onset Date Resolution Date Notes Provider Name and Address Organization Details Recorded Time Neoplasm of uncertain behavior of tonsil 88577762 Active CALVIN KATHLEEN MD [address] [place] [address], [phone] [place] [address] - [facility] 4 16:20:02 Primary malignant neoplasm of tonsil 748132106 Active 024 CALVIN KATHLEEN MD [address] [address], [place], [address], [facility] 09:27:13 Thyroid nodule 447555188 Active 024 CALVIN KATHLEEN MD [address] [address], [place], [address], [facility] 12:27:08 Problem Notes None recorded. Procedures Surgical History Date Name Laterality Status Provider Name and Address Organization Details Recorded Time 4 Telehealth completed CALVIN KATHLEEN MD [address] [place] [address], [phone], [facility] 09/28/2024 09:27:00 Biopsy Oropharynx completed CALVIN KATHLEEN MD [address] [place] [address], [phone], [facility] 09/21/2024 16:19:47 Imaging Results None recorded. Procedure Notes None recorded. Medical Equipment None Reported. Allergies Allergen ID Allergen Name Allergen Category Reaction Reaction Severity Criticality Documentation Date Start Date Code Code System Note Provider Name and Address Organization Details Recorded Time 162408 Product containin g penicilli n (product) medicatio n Not available Not available Not available 09/21/2024 82938 8001 SNOMED Felicity Simon [facility] 4 16:02:00 Medications Name Sig Start [...] Updated DateTime 09/21/2024 165.1 cm 25.8 kg/m2 36281.82 g Felicity Simon [place] - [facility] 09/21/2024 16:01:36 Social History None recorded. Functional Status None recorded. Mental Status None recorded. Family History Nothing Reported. Medical History No medical history recorded. Past Encounters Encounter ID Performer Location Encounter Start Date Encounter Closed Date Diagnosis/Indication Diagnosis SNOMED-CT Code Diagnosis ICD10 Code Diagnosis Note [id number] CALVIN KATHLEEN MD [facility] [address] [address] 09/21/2024 15:11:53 09/21/2024 16:30:58 Neoplasm of uncertain behavior of tonsil 14802192 D37.05 [id number] CALVIN KATHLEEN MD [facility] [address] [address] 09/28/2024 16:58:55 10/01/2024 09:34:22 Primary malignant neoplasm of tonsil 992438931 C09.9 Health Concerns Section Related Observation LastModified by Organization Detai ls LastModified Time None Recorded Concern Status LastModified by Organization Details LastModified Time None Recorded Advance Directives Directive None Recorded Payers Insurance Date Sequence Insurance Name Policy Number Policy Knight Covered Member ID Knight Member ID Guarantor Name 10/01/2024 1 [facility] - DOS ON OR AFTER 2023 - ONE CARE (MEDICARE REPLACEMENT/ADV ANTAGE - HMO) Yohan Ling [id number] Yohan Ling 09/21/2024 2 [facility] - DOS ON OR AFTER 2023 - ONE CARE (MEDICARE REPLACEMENT/ADV ANTAGE - HMO) Yohan Ling [id number] Yohan Ling 09/14/2024 1 [facility] - DOS ON OR AFTER 2023 - ONE CARE (MEDICARE REPLACEMENT/ADV ANTAGE - HMO) Yohan Sushil [id number] Yohan Sushil 09/14/2024 1 [facility] - DOS ON OR AFTER 2023 - MEDIC[place]ANTAGE [place]MEDICARE REPLACEMENT/ADV ANTAGE - PPO) Yohan Sushil [id number] Yohan Sushil 09/14/2024 1 [facility] - DOS ON OR AFTER 2023 - HALF-WAY OPTIONS AND ONE CARE (MEDICARE REPLACEMENT/ADV ANTAGE - PPO) Yohan Sushil [id number] Yohan Sushil Notes Date Note Type Note Provider Name and Address Organization Details Recorded Time 09/21/2024 text/html Left tonsil massonset of tongue pain May Dr Elder noted ulcer left superior tonsil - requested imaging and referred out.CT neck is pending insurance approval work - [employer] at night CALVIN KATHLEEN MD [address] [place] [address], [phone], [facility] - [facility] 09/21/2024 16:30:14 09/28/2024 text/html Left tonsil massonset of tongue pain May Dr Elder noted ulcer left superior tonsil - requested imaging and referred out.CT neck is pending insurance approval 09/21/24 chato Kathleen left 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
== END 2025-05-06 14:06 | disposition home or self-care (01) ==
LOC: HO.US 14:05
DX: R10.2 Pelvic and perineal pain (principal); R19.00 Intra-abdominal and pelvic swelling, mass and lump, unspecified site
CPT/HCPCS: 76857

== ENCOUNTER → 2025-05-06 14:08 | Outpatient (BNV) | payer OTHER, SELFPAY | PROVIDERS: Visit Provider Radiology Diagnostic Radiology | DX: R19.09 Other intra-abdominal and pelvic swelling, mass and lump (principal) | CPT/HCPCS: 76857 ==

== ENCOUNTER 2025-06-03 10:58 | Outpatient (AMB) | payer OTHER, SELFPAY ==
--- NOTE | 2025-06-03 11:02 | MHC.PC.OV ---
Vital Signs 06/03/25 11:03 Height 5 ft 5 in Weight 138 lb BMI 23.0 BP 130/82 Blood Pressure Location Lt brachial Position Sitting Pulse 87 Pulse Source Pulse Oximeter Temp 97.5 F Temp Source Temporal Artery Scan Pulse Oximetry (%) 96 Oxygen Delivery Method Room Air Intake Visit Reasons: Lymph nodes Intake Note: Patient is here to follow up on Lymph nodes. Mason Tender Restoration Labor Required: No Manufacturing Production Technician: Not Required per policy Accompanied by: Self / Same As Patient Allergies Penicillins (PENICILLINS) Allergy (Severe, Verified 06/03/25 11:14) ANAPHYLAXIS SEAFOOD Allergy (Severe, Uncoded 06/03/25 11:14) HIVES penincillin Allergy (Unknown, Uncoded 06/03/25 11:14) Immunodeficiency Medication List - Last Reconciled 06/03/25 by [facility] Fine albuterol sulfate 90 mcg/actuation 2 puffs PO Q6H PRN clotrimazole-betamethasone 1-0.05 % 1 appl topical BID 2 weeks cyclobenzaprine 10 mg PO TID PRN ibuprofen 600 mg PO Q8H PRN lisinopril 10 mg PO DAILY naproxen (Naprosyn) 500 mg PO BID PRN omeprazole 20 mg PO DAILY tramadol 50 mg PO Q8H PRN Tobacco use date assessed: 06/03/25 Dental Screening Dental Screen Date: 12/18/24 HPI Lymph nodes HPI Details The patient is a 54-year-old male presenting with bilateral shoulder pain and depression. The patient reports a history of depression, which he attributes to stress and weight loss concerns. He has started discussions with a historical manuscripts curator for therapy. Reports that he does not want to see a psychiatry because all they are going to do is start medications. The patient has a history of bilateral shoulder pain that he attributes to early arthritis; however, he also was picked up and slammed on the floor 10 years ago by a friend while playing around. He reports that he never got this evaluated and assumed that it was aa rotator cuff injury. He patient previous had a x-ray to the left shoulder that showed a possible calcified lymph node in the axillary region. In addition, the patient added that he was going to see rheumatology years ago for his arthritis, but have not follow up since the covid -19 pandemic. No document noted on file. He reports that his pain in both shoulders with movement is a 6/10. No pain with palpation of the joints of the shoulders. However it was noted that the patient was unable to lift his left arm all the way above his head and his left arm strength is slightly weaker than right. RUE 5/5, LUE 4.5/5. Right was extended about a 140 degrees with pain. Reports that he could lift it all the probably but there is too much pain. [facility] Medical History Screening for prostate cancer Screening for diabetes mellitus Hypertension Otitis media Surgical History No pertinent past surgical history Family History Father No problems noted. Mother Breast cancer Diabetes Brother Diabetes Hypertension Social History Housing: Apartment Alcohol intake: current Alcohol intake frequency: 0-2 drinks per day Alcohol type: beer Patient Tobacco Use Status: Former Tobacco user (quit three week ago before radiation treatment. ) Tobacco use type: Cigarette Cigarettes Per Day: 7 e-Cigarette/Vaping Use: Never Used Second Hand Smoke Exposure: Yes service: No Current occupational status: employed and disabled Cognitive needs: No Hearing needs: No Vision needs: No Questionnaire Thrive Questionnaire Date Thrive assessed: 03/11/25 I am a: Patient What is your living situation today?: I have a steady place to live Within the past 12 months, did the food you bought not last and you didn't have the money to get more?: Sometimes True Within the past 12 months, did you worry whether your food would run out before you got money to buy more?: Never true Do you have trouble paying for medicines?: No Do you have trouble getting transportation to medical appointments?: No Do you have trouble paying your heating and electricity bill?: No Do you have trouble taking care of your child, family member or friend?: No Do you have trouble with day-to-day activities such as bathing, preparing meals, shopping, managing finances, etc.?: No Are you currently unemployed and looking for a job?: Yes Are you interested in more education?: No Please select the resources that you would like help with: None Currently or been in a relationship where the following occur: No concerns reported THRIVE Score: 1 BARRY-7 AMB Questionnaire BARRY-7 Date BARRY - 7 assessed: 12/18/24 Source: Developed by Drs. Gentry Cruz, Sarah Mcdermott, Gabriel Austin and colleagues, with an educational michael from [employer]. Review of Systems Const Denies body aches, Denies chills, Denies fever(s), Denies headache(s) and Denies poor appetite Eyes Reports no additional complaints ENT Denies dysphagia, Denies dizziness, Denies headache(s) and Denies odynophagia Card Denies chest pain, Denies syncope, Denies edema, Denies irregular heart rhythm, Denies lightheadedness and Denies dyspnea Resp Denies cough and Denies dyspnea GI Denies abdominal pain, Denies constipation, Denies dysphagia, Denies diarrhea, Denies nausea, Denies odynophagia and Denies vomiting Reports no additional complaints Musc Denies abnormal gait, Reports arthralgias (bilateral should ), Denies joint swelling and Reports limited range of motion (right shoulder stopped at 140 degrees lift arm above head) Skin/Breast Reports system reviewed and no additional complaints, except as documented Neuro Denies Abnormal speech present, Denies abnormal gait, Denies dizziness, Denies syncope and Denies headache(s) Psych Reports depression Physical exam (Primary Care) Vital Signs: Last Vital Signs Temp 97.5 F 06/03/25 11:03 Pulse 87 06/03/25 11:03 BP 130/82 06/03/25 11:03 Pulse Ox 96 06/03/25 11:03 Oxygen Delivery Method Room Air 06/03/25 11:03 BMI result Body Mass Index 23.0 Tobacco/Smoking Status: Tobacco use Status Tobacco use date assessed 06/03/25 06/03/25 11:07 Patient Tobacco Use Status Former Tobacco user (quit 06/03/25 11:07 three week ago before radiation treatment. ) Tobacco use type Cigarette 06/03/25 11:07 e-Cigarette/Vaping Use Never Used 06/03/25 11:07 Thrive Assessment: Date of Thrive Assessment Date Thrive assessed 03/11/25 06/03/25 11:07 Currently or been in a relationship where the following occur: No concerns reported Const General: healthy appearing, no acute distress, alert and awake Nutritional Appearance: well nourished Orientation/consciousness: oriented to person, oriented to place and oriented to time [facility] Ears: hearing grossly normal bilaterally General nose exam: Normal external nose present Eyes Conjunctivae: conjunctivae normal Sclerae: sclerae normal Pupils: Equal, round and reactive pupils present Neck Neck: Yes no lymphadenopathy and Yes no JVD Thyroid: Thyroid normal Carotids: no bruits Resp Effort & Inspection: normal respiratory effort and not tachypneic Auscultation: no crackles, no rales, no rhonchi and no wheezes Cardio Rate: regular rate Rhythm: regular rhythm Heart sounds: S1 normal heart sound present, S2 normal heart sound present, no murmurs and normal S1 and S2 GI Palpation (GI): Soft to palpation, nontender, no hepatomegaly and no splenomegaly Auscultation: normal bowel sounds Skin General skin exam: no rashes or lesions noted and dry skin Neuro General: oriented to person, oriented to place and oriented to time Cranial nerves: Yes Equal, round and reactive pupils present Speech: No Abnormal speech present Gait exam (Neuro): Normal gait present Motor exam (neuro): no tremor noted and Other motor observations present (RUE 5/5, LUE 4.5/5) Extrem Right upper extremity: shoulder/upper arm Details: abnormal ROM Details: pain with passive ROM; no tenderness Left upper extremity: full ROM and shoulder/upper arm Details: abnormal ROM (140 degrees above head with pain) Details: pain with passive ROM; no tenderness Right lower extremity: full ROM; no edema Left lower extremity: full ROM; no edema Psych Mental Status: mental status grossly normal Speech and movement: Normal speech and movement present Affect: normal affect Attitude: cooperative Thought process: Normal thought process present Coding Level of Care Code Tele Est Pt Level 3 (08535) Diagnoses Left shoulder pain, unspecified chronicity M25.512 Chronicity: unspecified Chronic right shoulder pain M25.511; G89.29 Chronicity: chronic Depression, unspecified depression type F32.9 Depression Type: unspecified Time Spent (min) 39 Assessment & Plan Assessment & Plan (1) Left shoulder pain: Code(s): M25.512 - Pain in left shoulder Category: Medical Qualifiers: Chronicity: unspecified Qualified Code(s): M25.512 - Pain in left shoulder Plan: Reports that he was diagnosed with arthritis since he was a teen. In addition, the patient reports that about 10 years ago he was picked up and slammed on the floor by a friend while playing. Has a result, he injured his left shoulder. This was not evaluated however he suspected that he had a rotator cuff tear. Patient has some limitation in the left arm with range of motion was unable to lift his arm completely over his head. His arm stopped that about 140 degrees before started complaining of pain. Left shoulder x-ray done recently showed no acute finding however, there was a possible calcified left lymph node in her axilla. We will also refer the patient to PT for evaluation and treatment (2) Right shoulder pain: Code(s): M25.511 - Pain in right shoulder Category: Medical Qualifiers: Chronicity: chronic Qualified Code(s): M25.511 - Pain in right shoulder; G89.29 - Other chronic pain Plan: Reports that he was diagnosed with arthritis since he was a teen. He is reporting 6/10 pain with activity right shoulder. No limitation in range of motion. No swelling or erythema. No pain to palpation We will refer to PT to further evaluate. (3) Depression: Code(s): F32.9 - Major depressive disorder, single episode, unspecified Category: Medical Qualifiers: Depression Type: unspecified Qualified Code(s): F32.9 - Major depressive disorder, single episode, unspecified Plan: Patient has a history of bipolar disorder, anxiety and ADHD he was seen Psychiatry and was on medication and he stopped these treatments because he would rather go about this the natural route. The patient recently complained of increased stress and requested to talk to a therapist. The patient reports that he has been connected with the historical manuscripts curator and he is working with them to find a therapist. Orders: Orders PT Evaluation and Treatment Today G89.29 - Other chronic pain, M25.511 - Pain in right shoulder, M25.512 - Pain in left shoulder
[2025-06-03 11:03] VITALS: BP 130/82; PULSE 87; TEMP 36.4; O2SAT 96; BMI 23.0
--- OUTSIDE RECORDS SUMMARY | 2025-06-03 12:19 | XMS_ITS | Data Portability ---
Author Organization [place] - [facility], [facility] Address [address] [place] [address] Care Team Providers Care Principal Ios Developer Name Role Phone CHAPARRO GIA Primary Care Provider [phone] Assessment Encounter Date Assessment Date Assessment LastModified [...] Go To The Location Of Their Choice, [id number] 11:21:49 Referral radiation oncologist referral - Referral for Primary malignant neoplasm of tonsil 2023 024 PAKO Nicholson MD, [address] [place], [address], 4 16:03:46 medical oncologist referral - Referral for Primary malignant neoplasm of tonsil. PET-CT ordered. Thank you 2023 024 [facility] Colin Wallace MD, [address] [place], [address], 4 16:11:21 Procedures None recorded. Surgeries None recorded. Imaging PET-CT, skull base to mid-thigh scan 2023 024 [email or web address] Not available 08:58:08 Medication Orders None recorded. [...] observ ation record ed. [email or web address] [facility] [address], [address], 10/10/2024 15:31:12 11/09/19 25 11/09/2024 US, thyro id No observ ation record ed. [email or web address] [facility] [address], [address], 11/12/2024 13:38:02 Result Notes None recorded. 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 CALVIN KATHLEEN MD [address] [place] [address], [phone] [place] [address] - [facility] 4 16:20:02 Primary malignant neoplasm of tonsil 420702538 Active 024 CALVIN KATHLEEN MD [address] [address], [place], [address], [facility] 09:27:13 Thyroid nodule 507009356 Active 024 CALVIN KATHLEEN MD [address] [address], [place], [address], [facility] 12:27:08 Problem Notes None recorded. Procedures Surgical History Date Name Laterality Status Provider Name and Address Organization Details Recorded Time 4 Telehealth completed CALVIN KATHLEEN MD [address] [place] [address], [phone], [facility] 09/28/2024 09:27:00 Biopsy Oropharynx completed CALVIN KATHLEEN MD [address] [place] [address], [phone], [facility] 09/21/2024 16:19:47 Imaging Results None recorded. Procedure Notes None recorded. Medical Equipment None Reported. Allergies Allergen ID Allergen Name Allergen Category Reaction Reaction Severity Criticality Documentation Date Start Date Code Code System Note Provider Name and Address Organization Details Recorded Time 540132 Product containin g penicilli n (product) medicatio n Not available Not available Not available 09/21/2024 94064 8001 SNOMED Felicity Simon [facility] 4 16:02:00 Medications Name Sig Start Date [...] Updated DateTime 09/21/2024 165.1 cm 25.8 kg/m2 94202.82 g Felicity Simon [place] - [facility] 09/21/2024 16:01:36 Social History None recorded. Functional Status None recorded. Mental Status None recorded. Family History Nothing Reported. Medical History No medical history recorded. Past Encounters Encounter ID Performer Location Encounter Start Date Encounter Closed Date Diagnosis/Indication Diagnosis SNOMED-CT Code Diagnosis ICD10 Code Diagnosis Note [id number] CALVIN KATHLEEN MD [facility] [address] [address] 09/21/2024 15:11:53 09/21/2024 16:30:58 Neoplasm of uncertain behavior of tonsil 98516674 D37.05 [id number] CALVIN KATHLEEN MD [facility] [address] [address] 09/28/2024 16:58:55 10/01/2024 09:34:22 Primary malignant neoplasm of tonsil 125755235 C09.9 Health Concerns Section Related Observation LastModified by Organization Detai ls LastModified Time None Recorded Concern Status LastModified by Organization Details LastModified Time None Recorded Advance Directives Directive None Recorded Payers Insurance Date Sequence Insurance Name Policy Number Policy Knight Covered Member ID Knight Member ID Guarantor Name 10/01/2024 1 [facility] - DOS ON OR AFTER 2023 - ONE CARE (MEDICARE REPLACEMENT/ADV ANTAGE - HMO) Yohan Ling [id number] Yohan Ling 09/21/2024 2 [facility] - DOS ON OR AFTER 2023 - ONE CARE (MEDICARE REPLACEMENT/ADV ANTAGE - HMO) Yohan Ling [id number] Yohan Ling 09/14/2024 1 [facility] - DOS ON OR AFTER 2023 - ONE CARE (MEDICARE REPLACEMENT/ADV ANTAGE - HMO) Yohan Ling [id number] Yohan Ling 09/14/2024 1 [facility] - DOS ON OR AFTER 2023 - MEDICARE [place]ANTAGE [place] (MEDICARE [place]PLACEMENT/ADV ANTAGE - PPO) Yohan Ling [id number] Yohan Ling 09/14/2024 1 [facility] - DOS ON OR AFTER 2023 - [employer] OPTIONS AND ONE CARE (MEDICARE REPLACEMENT/ADV ANTAGE - PPO) Yohan Ling [id number] Yohan Ling
== END 2025-06-03 11:29 | disposition home or self-care (01) ==
LOC: HO.HMCH 10:59
DX: M25.512 Pain in left shoulder (principal); M25.511 Pain in right shoulder; G89.29 Other chronic pain; F32.9 Major depressive disorder, single episode, unspecified

== ENCOUNTER → 2025-06-03 10:58 | Outpatient (BNVA) | payer OTHER, SELFPAY | DX: M25.512 Pain in left shoulder (principal); M25.511 Pain in right shoulder; F32.9 Major depressive disorder, single episode, unspecified; G89.29 Other chronic pain | CPT/HCPCS: 99212 ==

== ENCOUNTER 2025-06-24 11:17 | Outpatient (AMB) | payer OTHER, SELFPAY ==
--- OUTSIDE RECORDS SUMMARY | 2025-06-21 23:59 | XMS_ITS | Continuity of Care Document ---
Author Organization [facility] Address [address] [place] [address]- Care Team Providers Care Outreach Nurse Name Role Phone Not on Staff, PCP Primary Care Physician Unavail able [place] [facility] [place] 06/21/[address] [address] Attending Physician: Katy Nguyen Admitting Physician: Admtr, Katy Referring Physician: Admtr, Ar8 Encounter Type: Triage Allergies, Adverse Reactions, Alerts Substance Criticality Severity Reaction Reaction Severity Status penicillins Active Medications Benadryl Elixir 4 oz, Nystatin Suspension 4 oz, Lidocaine Viscous 2% 100 ml, Mylanta or Maalox 8 oz Benadryl Elixir 4 oz, Nystatin Suspension 4 oz, Lidocaine Viscous 2% 100 ml, Mylanta or Maalox 8 oz, See Instructions, # 580 mL, Refills 5, Tot. Refills 5, Maintenance, 1-2 tsp Q 2-4 hours PRN Swish and Swallow Shake well before use refrigerate, 03/07/25 10:37:00 AM EDT, Compound, 163.9, cm, 01/15/2515:06:00 EDT, Height, 74.7, kg, 12/05/24 10:50:00 EST, Dry Weight Start Date: 03/07/25 Status: Ordered Quantity: 580.0 Unit: mL Repeat number: 6 dexamethasone 0.5 mg/5 mL oral liquid See Instructions, 5 mL swish for 30 seconds then swallow By Mouth 3 times a day 10 days, # 150 mL, 1 Refills, Maintenance, 01/01/25 2:54:00 PM EST, [facility], Partial fill upon patient request if the prescription is for a schedule II opioid drug., 163.9, cm, 12/05/24 10:50:00 EST, Height, 74.7, kg, 12/05/24 10:50:00 EST, Dry Weight Start Date: 01/01/25 Status: Ordered Quantity: 150.0 Unit: mL Repeat number: 2 diclofenac sodium 75 mg oral delayed release tablet 1 tablet = 75 mg, By Mouth, 2 times a day, # 60 tablet, 1 Refills, Maintenance, 10/06/17 4:45:37 PMEST, EC Tablet, [facility] Start Date: 10/06/17 Stop Date: 12/05/17 Status: Ordered Quantity: 60.0 Unit: tablet Repeat number: 2 Naprosyn 500 mg oral tablet 1 tablet = 500 mg, By Mouth, 2 times a day, # 60 tablet, 0 Refills, Maintenance, 08/17/17 11:44:12 AM EDT, Tablet Start Date: 08/17/17 Status: Ordered Quantity: 60.0 Unit: tablet Repeat number: 1 traMADol 50 mg oral tablet 1 tablet = 50 mg, By Mouth, Daily at bedtime, PRN for pain, # 7 tablet, 0 Refills, Maintenance, 08/17/17 11:44:22 AM EDT, Tablet Start Date: 08/17/17 Status: Ordered Quantity: 7.0 Unit: tablet Repeat number: 1 Social History Social History Type Response Tobacco Use: 4 or less cigar ettes(less than 1/4 pack)/day in last 30 days. Interested in cessation: No. No Sex Sex Representation Male (finding) Patient Care team information Care Team Personnel Name: Not on Staff, PCP Position: [facility] Physician (General Medicine) Member Role: PCP Name: Jitendra Bahena MD Position: [facility] Renal MD Member Role: Lifetime Consulting Physician Address: [address] [place] [address] [id number] [facility] [address] Telecom: Care Team Related Persons Name: YESENIA LUNA Insurance Providers Guarantor name: BRIANDA MCKEE [employer] Plan Information #: 1 Payer: [facility] Payer Identifier: NA Member Number: [id number] Group Number: [id number] Subscriber Identifier: [id number] Relationship to Subscriber: self Coverage Type: Medicare Managed Care (Includes Medicare Advantage Plans) Coverage Verification Date: NA Telecom: NA Address: NA
[2025-06-24 11:21] VITALS: BP 126/78; PULSE 78; RESP 18; TEMP 36.2; O2SAT 97; BMI 22.9
--- NOTE | 2025-06-24 11:21 | A.OFFPC_ITS ---
Vital Signs 06/24/25 11:21 Height 5 ft 5 in Weight 137 lb 8 oz BMI 22.9 BP 126/78 Blood Pressure Location Lt brachial Position Sitting Respiration 18 Pulse 78 Pulse Source Pulse Oximeter Temp 97.1 F Temp Source Temporal Artery Scan Pulse Oximetry (%) 97 Oxygen Delivery Method Room Air Intake Visit Reasons: skin irritation Subsea Engineer Required: No Accompanied by: Self / Same As Patient Allergies Penicillins (PENICILLINS) Allergy (Severe, Verified 06/24/25 11:30) ANAPHYLAXIS SEAFOOD Allergy (Severe, Uncoded 06/24/25 11:30) HIVES penincillin Allergy (Unknown, Uncoded 06/24/25 11:30) Immunodeficiency Medication List - Last Reconciled 06/24/25 by [facility] Fine albuterol sulfate 90 mcg/actuation 2 puffs PO Q6H PRN clotrimazole-betamethasone 1-0.05 % 1 appl topical BID 2 weeks cyclobenzaprine 10 mg PO TID PRN ibuprofen 600 mg PO Q8H PRN lisinopril 10 mg PO DAILY naproxen (Naprosyn) 500 mg PO BID PRN omeprazole 20 mg PO DAILY tramadol 50 mg PO Q8H PRN Tobacco use date assessed: 06/24/25 Dental Screening Dental Screen Date: 06/24/25 Did you have a dental visit in the last 12 months?: Yes Did you have a dental problem in the last 6 months where you did not have access to dental care?: No Was dental information given to patient?: Patient has dentist [facility] Medical History Screening for prostate cancer Screening for diabetes mellitus Hypertension Otitis media Surgical History No pertinent past surgical history Family History Father No problems noted. Mother Breast cancer Diabetes Brother Diabetes Hypertension Social History Housing: Apartment Alcohol intake: current Alcohol intake frequency: 0-2 drinks per day Alcohol type: beer Patient Tobacco Use Status: Former Tobacco user Tobacco use type: Cigarette Cigarettes Per Day: 7 e-Cigarette/Vaping Use: Never Used Second Hand Smoke Exposure: Yes service: No Current occupational status: employed and disabled Cognitive needs: No Hearing needs: No Vision needs: No Questionnaire PHQ-9 Over the last 2 weeks, how often have you been bothered by any of the following problems? 1. Little interest or pleasure in doing things: not at all 2. Feeling down, depressed, or hopeless: not at all 3. Trouble falling or staying asleep, or sleeping too much: not at all 4. Feeling tired or having little energy: not at all 5. Poor appetite or overeating: not at all 6. Feeling bad about yourself - or that you are a failure or have let yourself or your family down: not at all 7. Trouble concentrating on things, such as reading the newspaper or watching television: not at all 8. Moving or speaking so slowly that other people could have noticed. Or the opposite - being so fidgety or restless that you have been moving around a lot more than usual: not at all 9. Thoughts that you would be better off or of hurting yourself in some way: not at all Total score: 0 Depression Screening Interpretation: Negative Depression Screening Done: Yes Source: Developed by Drs. Gentry Cruz, Sarah Mcdermott, Gabriel Austin and colleagues, with an educational michael from [employer]. Thrive Questionnaire Date Thrive assessed: 06/24/25 I am a: Patient What is your living situation today?: I have a steady place to live Within the past 12 months, did the food you bought not last and you didn't have the money to get more?: Sometimes True Within the past 12 months, did you worry whether your food would run out before you got money to buy more?: Never true Do you have trouble paying for medicines?: No Do you have trouble getting transportation to medical appointments?: No Do you have trouble paying your heating and electricity bill?: No Do you have trouble taking care of your child, family member or friend?: No Do you have trouble with day-to-day activities such as bathing, preparing meals, shopping, managing finances, etc.?: No Are you currently unemployed and looking for a job?: Yes Are you interested in more education?: No Please select the resources that you would like help with: None Currently or been in a relationship where the following occur: No concerns reported THRIVE Score: 1 AUDIT C Alcohol Use Questionnaire (AUDIT-C) 1. How often do you have a drink containing alcohol?: 4 or more times a week 2. How many drinks containing alcohol do you have on a typical day when you are drinking?: 3 or 4 3. How often do you have six or more drinks on one occasion?: Never Total Score: 5 BARRY-7 AMB Questionnaire BARRY-7 Date BARRY - 7 assessed: 06/24/25 Source: Developed by Drs. Gentry Cruz, Sarah Mcdermott, Gabriel Austin and colleagues, with an educational michael from [employer]. Review of Systems Const Denies chills and Denies fever(s) Eyes Reports no additional complaints ENT Reports no additional complaints Card Denies chest pain, Denies edema, Denies irregular heart rhythm, Denies lightheadedness and Denies dyspnea Resp Denies cough and Denies dyspnea Skin/Breast Reports rash (Left side of neck and left upper chest) Neuro Reports paresthesias (burning throbbing pain to a left neck and chest) Physical exam (Primary Care) Vital Signs: Last Vital Signs Temp 97.1 F 06/24/25 11:21 Pulse 78 06/24/25 11:21 Resp 18 06/24/25 11:21 BP 126/78 06/24/25 11:21 Pulse Ox 97 06/24/25 11:21 Oxygen Delivery Method Room Air 06/24/25 11:21 BMI result Body Mass Index 22.9 Tobacco/Smoking Status: Tobacco use Status Tobacco use date assessed 06/03/25 06/24/25 10:06 Patient Tobacco Use Status Former Tobacco user 06/24/25 10:06 Tobacco use type Cigarette 06/24/25 10:06 e-Cigarette/Vaping Use Never Used 06/24/25 10:06 Depression Screening Interpretation: Negative Thrive Assessment: Date of Thrive Assessment Date Thrive assessed 03/11/25 06/24/25 10:06 Currently or been in a relationship where the following occur: No concerns reported Const General: awake HENMT Head: Yes normal to inspection Face and sinus: Yes normal facial exam Eyes Pupils: Equal, round and reactive pupils present Neck Neck: Yes no lymphadenopathy Chest Chest palpation & inspection: rash (Left, cluster raised skin colored rashes) Resp Auscultation: clear to auscultation bilaterally and no wheezes Cardio Rate: regular rate Rhythm: regular rhythm Skin Lesions: lesion noted (Raised, clustered, skin colored rash to left upper chest and left neck area) Neuro Cranial nerves: Yes Equal, round and reactive pupils present Coding Level of Care Code Est Pt Level 3 (15909) Diagnoses Herpes zoster without complication B02.9 Herpes zoster complications: without complications Time Spent (min) 24 Assessment & Plan Assessment & Plan (1) Shingles rash: Code(s): B02.9 - Zoster without complications Category: Medical Qualifiers: Herpes zoster complications: without complications Qualified Code(s): B02.9 - Zoster without complications Plan: Patient has clustered raised flesh-colored rashes to the left side of upper chest and neck area. Reports a burning and pulling sensation. Valacyclovir a 1000 mg q.8 hours x7 days and gabapentin 100 mg t.i.d. ordered. Patient already had a follow up appointment on the . We will re-evaluate his condition then. Medications: New valacyclovir 1,000 mg PO Q8H 21 tabs 0RF 7 days gabapentin 100 mg PO TID 30 caps 0RF
== END 2025-06-24 11:48 | disposition home or self-care (01) ==
LOC: HO.HMCH 11:18
DX: B02.9 Zoster without complications (principal)

== ENCOUNTER → 2025-06-24 11:17 | Outpatient (BNVA) | payer OTHER, SELFPAY | DX: B02.9 Zoster without complications (principal) | CPT/HCPCS: 96127; 99212 ==

== ENCOUNTER 2025-07-01 13:45 | Outpatient (AMB) | payer OTHER, SELFPAY ==
[2025-07-01 13:54] VITALS: BP 120/62; PULSE 82; RESP 18; TEMP 36.4; O2SAT 98; BMI 23.2
--- NOTE | 2025-07-01 13:54 | MHC.PC.OV ---
Vital Signs 07/01/25 13:54 Height 5 ft 5 in Weight 139 lb 8 oz BMI 23.2 BP 120/62 Blood Pressure Location Lt brachial Position Sitting Respiration 18 Pulse 82 Temp 97.5 F Temp Source Temporal Artery Scan Pulse Oximetry (%) 98 Oxygen Delivery Method Room Air Intake Visit Reasons: 3 month follow up Strategies Analyst Required: No Accompanied by: Self / Same As Patient Allergies Penicillins (PENICILLINS) Allergy (Severe, Verified 07/01/25 14:09) ANAPHYLAXIS SEAFOOD Allergy (Severe, Uncoded 07/01/25 14:09) HIVES penincillin Allergy (Unknown, Uncoded 07/01/25 14:09) Immunodeficiency Medication List - Last Reconciled 07/01/25 by IAM Fine albuterol sulfate 90 mcg/actuation 2 puffs PO Q6H PRN ibuprofen 600 mg PO Q8H PRN lisinopril 10 mg PO DAILY valacyclovir 1,000 mg PO Q8H 7 days Tobacco use date assessed: 06/24/25 Dental Screening Dental Screen Date: 07/01/25 Did you have a dental visit in the last 12 months?: Yes Did you have a dental problem in the last 6 months where you did not have access to dental care?: No Was dental information given to patient?: Patient has dentist HPI 3 month follow up HPI Details The patient is a 54-year-old male presenting three month follow up. We discussed his cancer surveillance, musculoskeletal pain, and a dermatological concern. The patient underwent a PET scan which showed no evidence of cancer. However, an endoscopic evaluation is planned to ensure there is no residual disease. This is part of ongoing cancer surveillance to provide peace of mind and ensure comprehensive care. The patient reports ongoing left shoulder pain, which is possibly due to repetitive work activities involving pulling and lifting. The pain is described as tightness, similar to muscle fatigue experienced during prolonged physical activity. An orthopedic consultation is scheduled to further evaluate the shoulder pain. The patient experienced a burning sensation on the skin, initially suspected to be either an insect bite or shingles. The burning sensation has since resolved since started treatment for shingles. [facility] Medical History Screening for prostate cancer Screening for diabetes mellitus Hypertension Otitis media Surgical History No pertinent past surgical history Family History Father No problems noted. Mother Breast cancer Diabetes Brother Diabetes Hypertension Social History Housing: Apartment Alcohol intake: current Alcohol intake frequency: 0-2 drinks per day Alcohol type: beer Patient Tobacco Use Status: Former Tobacco user Tobacco use type: Cigarette Cigarettes Per Day: 7 e-Cigarette/Vaping Use: Never Used Second Hand Smoke Exposure: Yes service: No Current occupational status: employed and disabled Cognitive needs: No Hearing needs: No Vision needs: No Questionnaire PHQ-9 Over the last 2 weeks, how often have you been bothered by any of the following problems? 1. Little interest or pleasure in doing things: not at all 2. Feeling down, depressed, or hopeless: not at all 3. Trouble falling or staying asleep, or sleeping too much: not at all 4. Feeling tired or having little energy: not at all 5. Poor appetite or overeating: not at all 6. Feeling bad about yourself - or that you are a failure or have let yourself or your family down: not at all 7. Trouble concentrating on things, such as reading the newspaper or watching television: not at all 8. Moving or speaking so slowly that other people could have noticed. Or the opposite - being so fidgety or restless that you have been moving around a lot more than usual: not at all 9. Thoughts that you would be better off or of hurting yourself in some way: not at all Total score: 0 Depression Screening Interpretation: Negative Depression Screening Done: Yes Source: Developed by Drs. Gentry Cruz, Sarah Mcdermott, Gabriel Austin and colleagues, with an educational michael from [employer]. Thrive Questionnaire Date Thrive assessed: 07/01/25 I am a: Patient What is your living situation today?: I have a steady place to live Within the past 12 months, did the food you bought not last and you didn't have the money to get more?: Sometimes True Within the past 12 months, did you worry whether your food would run out before you got money to buy more?: Never true Do you have trouble paying for medicines?: No Do you have trouble getting transportation to medical appointments?: No Do you have trouble paying your heating and electricity bill?: No Do you have trouble taking care of your child, family member or friend?: No Do you have trouble with day-to-day activities such as bathing, preparing meals, shopping, managing finances, etc.?: No Are you currently unemployed and looking for a job?: Yes Are you interested in more education?: No Please select the resources that you would like help with: None Currently or been in a relationship where the following occur: No concerns reported THRIVE Score: 1 AUDIT C Alcohol Use Questionnaire (AUDIT-C) 1. How often do you have a drink containing alcohol?: 4 or more times a week 2. How many drinks containing alcohol do you have on a typical day when you are drinking?: 3 or 4 3. How often do you have six or more drinks on one occasion?: Never Total Score: 5 BARRY-7 AMB Questionnaire BARRY-7 Date BARRY - 7 assessed: 07/01/25 Feeling nervous, anxious, or on edge: 2 = More than half the days Not being able to stop or control worryin = Several days Worrying too much about different things: 1 = Several days Trouble relaxin = Several days Being so restless that it is hard to sit still: 2 = More than half the days Becoming easily annoyed or irritable: 2 = More than half the days Feeling afraid as if something awful might happen: 0 = Not at all Total BARRY-7 score (0-4 normal; 5-9 mild; 10-14 moderate; 15-21 severe): 9 Source: Developed by Drs. Gentry Cruz, Sarah Mcdermott, Gabriel Austin and colleagues, with an educational michael from [employer]. Review of Systems Const Denies headache(s) Eyes Denies loss of vision ENT Denies vertigo, Denies dizziness, Denies headache(s) and Denies sore throat Card Denies chest pain, Denies leg edema and Denies lightheadedness Resp Denies cough, Denies hemoptysis and Denies wheezing GI Denies abdominal pain, Denies melena, Denies constipation, Denies diarrhea and Denies vomiting Denies dysuria, Denies urinary frequency and Denies urinary urgency Musc Reports arthralgias (Left shoulder > right shoulder), Denies joint swelling, Denies numbness and Denies tingling Skin/Breast Reports other (Left neck area rashes drying up) Neuro Denies behavioral changes, Denies vertigo, Denies dizziness, Denies headache(s), Denies loss of vision, Denies memory loss, Denies numbness and Denies tingling Psych Denies anxiety, Denies behavioral changes, Denies depression, Denies memory loss and Denies panic attacks Rasheed/Lymph Denies easy bleeding and Denies easy bruising Aller/Immun Denies wheezing Physical exam (Primary Care) Vital Signs: Last Vital Signs Temp 97.5 F 07/01/25 13:54 Pulse 82 07/01/25 13:54 Resp 18 07/01/25 13:54 BP 120/62 07/01/25 13:54 Pulse Ox 98 07/01/25 13:54 Oxygen Delivery Method Room Air 07/01/25 13:54 BMI result Body Mass Index 23.2 Tobacco/Smoking Status: Tobacco use Status Tobacco use date assessed 06/24/25 07/01/25 14:04 Patient Tobacco Use Status Former Tobacco user 07/01/25 14:04 Tobacco use type Cigarette 07/01/25 14:04 e-Cigarette/Vaping Use Never Used 07/01/25 14:04 PHQ-9: PHQ-9 Score PHQ-9: Total score 0 07/01/25 14:18 Depression Screening Interpretation: Negative Thrive Assessment: Date of Thrive Assessment Date Thrive assessed 07/01/25 07/01/25 14:04 Currently or been in a relationship where the following occur: No concerns reported Const General: awake Orientation/consciousness: patient oriented x3 HENMT Head: Yes normal to inspection Ears: hearing grossly normal bilaterally General nose exam: Normal external nose present Face and sinus: Yes normal facial exam Eyes General: appearance normal, both eyes and all related structures Conjunctivae: conjunctivae normal Pupils: Equal, round and reactive pupils present Neck Neck: Yes no lymphadenopathy Chest Chest palpation & inspection: rash (Scattered dry it up rashes-appear to be resolving) Resp Effort & Inspection: normal respiratory effort Auscultation: clear to auscultation bilaterally and no wheezes Cardio Rate: regular rate Rhythm: regular rhythm Skin Lesions: lesion noted (small amount dried up healing rashes to left chest/neck) Neuro General: patient oriented x3 Cranial nerves: Yes Equal, round and reactive pupils present Gait exam (Neuro): Normal gait present Extrem General: Yes normal to inspection, Yes full ROM and No edema Psych Affect: normal affect Attitude: cooperative Insight: Good insight present (Psych) Judgement: Good judgement present (Psych) Coding Level of Care Code Est Pt Level 3 (80481) Diagnoses Attention deficit hyperactivity disorder (ADHD), unspecified ADHD type F90.9 Attention deficit-hyperactivity disorder type: unspecified Depression, unspecified depression type F32.9 Depression Type: unspecified Hypertension, unspecified type I10 Hypertension type: unspecified Hyperlipidemia, unspecified hyperlipidemia type E78.5 Hyperlipidemia type: unspecified IFG (impaired fasting glucose) R73.01 Herpes zoster without complication B02.9 Herpes zoster complications: without complications Left shoulder pain, unspecified chronicity M25.512 Chronicity: unspecified Chronic right shoulder pain M25.511; G89.29 Chronicity: chronic Time Spent (min) 37 Assessment & Plan Assessment & Plan (1) ADHD: Code(s): F90.9 - Attention-deficit hyperactivity disorder, unspecified type Category: Medical Qualifiers: Attention deficit-hyperactivity disorder type: unspecified Qualified Code(s): F90.9 - Attention-deficit hyperactivity disorder, unspecified type Plan: He is currently not on any treatments. Reports alcohol and marijuana use. Reports that he has done okay at this time. (2) Depression: Code(s): F32.9 - Major depressive disorder, single episode, unspecified Category: Medical Qualifiers: Depression Type: unspecified Qualified Code(s): F32.9 - Major depressive disorder, single episode, unspecified Plan: Patient has a history of bipolar disorder, anxiety and ADHD he was seen Psychiatry and was on medication and he stopped these treatments because he would rather go about this the natural route. The patient recently complained of increased stress and requested to talk to a therapist. 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 (3) Hypertension: Code(s): I10 - Essential (primary) hypertension Category: Medical Qualifiers: Hypertension type: unspecified Qualified Code(s): I10 - Essential (primary) hypertension Plan: Blood pressure 120/62 within goal Continue lisinopril 10 mg daily (4) HLD (hyperlipidemia): Code(s): E78.5 - Hyperlipidemia, unspecified Category: Medical Qualifiers: Hyperlipidemia type: unspecified Qualified Code(s): E78.5 - Hyperlipidemia, unspecified Plan: LDL 124 Discussed lifestyle modifications including dietary changes and physical activity We will recheck lipid panel in 4 months (5) IFG (impaired fasting glucose): Code(s): R73.01 - Impaired fasting glucose Category: Medical Plan: Fasting glucose was 115. We will add an A1c to follow up labs to further evaluate (6) Shingles rash: Code(s): B02.9 - Zoster without complications Category: Medical Qualifiers: Herpes zoster complications: without complications Qualified Code(s): B02.9 - Zoster without complications Plan: Patient came in last week with shingles appearing rash to left side of neck and left side of chest. He was started on valacyclovir 1000 mg q.8 hours x7 days and was also given gabapentin for nerve pain prn. Patient is reporting today that the pain had subsided. The rash has also drying up/resolving (7) Left shoulder pain: Code(s): M25.512 - Pain in left shoulder Category: Medical Qualifiers: Chronicity: unspecified Qualified Code(s): M25.512 - Pain in left shoulder Plan: Reports that he was diagnosed with arthritis since he was a teen. In addition, the patient reports that about 10 years ago he was picked up and slammed on the floor by a friend while playing. Has a result, he injured his left shoulder. This was not evaluated however he suspected that he had a rotator cuff tear. Patient has some limitation in the left arm with range of motion was unable to lift his arm completely over his head. His arm stopped that about 140 degrees before started complaining of pain. Left shoulder x-ray done recently showed no acute finding however, there was a possible calcified left lymph node in her axilla. Patient was referred to PT to evaluate and treat. That later was referred to Orthopedics, awaiting appointment. (8) Right shoulder pain: Code(s): M25.511 - Pain in right shoulder Category: Medical Qualifiers: Chronicity: chronic Qualified Code(s): M25.511 - Pain in right shoulder; G89.29 - Other chronic pain Plan: Reports that he was diagnosed with arthritis since he was a teen. He is reporting 6/10 pain with activity right shoulder. No limitation in range of motion. No swelling or erythema. No pain to palpation PT referral was ordered Plan Plan Patient was informed and verbally consented to the use of an ambient scribe for clinic note documentation during this visit. 1. Cancer Surveillance The patient underwent a PET scan which showed no evidence of cancer. However, an endoscopic evaluation is planned to ensure there is no residual disease. This is part of ongoing cancer surveillance to provide peace of mind and ensure comprehensive care. 2. Musculoskeletal Pain The patient reports left shoulder pain, which is possibly due to repetitive work activities involving pulling and lifting. An orthopedic consultation is scheduled to further evaluate the shoulder pain. 3. Dermatological Concern The patient experienced a burning sensation on the skin, initially suspected to be either an insect bite or shingles. The burning sensation has since resolved, and the patient attributes it to a possible insect bite.. Orders: Orders Comprehensive [place]. Panel Fast 4 Months E78.5 - Hyperlipidemia, unspecified, F31.9 - Bipolar disorder, unspecified, F32.9 - Major depressive disorder, single episode, unspecified, F41.9 - Anxiety disorder, unspecified, F90.9 - Attention-deficit hyperactivity disorder, unspecified type, I10 - Essential (primary) hypertension, R73.01 - Impaired fasting glucose UA CC w/rflx Micro + Cult 4 Months E78.5 - Hyperlipidemia, unspecified, F31.9 - Bipolar disorder, unspecified, F32.9 - Major depressive disorder, single episode, unspecified, F41.9 - Anxiety disorder, unspecified, F90.9 - Attention-deficit hyperactivity disorder, unspecified type, I10 - Essential (primary) hypertension, R73.01 - Impaired fasting glucose Hemoglobin A1c 4 Months E78.5 - Hyperlipidemia, unspecified, F31.9 - Bipolar disorder, unspecified, F32.9 - Major depressive disorder, single episode, unspecified, F41.9 - Anxiety disorder, unspecified, F90.9 - Attention-deficit hyperactivity disorder, unspecified type, I10 - Essential (primary) hypertension, R73.01 - Impaired fasting glucose Vitamin D 25-OH Total 4 Months E78.5 - Hyperlipidemia, unspecified, F31.9 - Bipolar disorder, unspecified, F32.9 - Major depressive disorder, single episode, unspecified, F41.9 - Anxiety disorder, unspecified, F90.9 - Attention-deficit hyperactivity disorder, unspecified type, I10 - Essential (primary) hypertension, R73.01 - Impaired fasting glucose Lipid Panel 4 Months E78.5 - Hyperlipidemia, unspecified, F31.9 - Bipolar disorder, unspecified, F32.9 - Major depressive disorder, single episode, unspecified, F41.9 - Anxiety disorder, unspecified, F90.9 - Attention-deficit hyperactivity disorder, unspecified type, I10 - Essential (primary) hypertension, R73.01 - Impaired fasting glucose TSH reflex Free T4 4 Months E78.5 - Hyperlipidemia, unspecified, F31.9 - Bipolar disorder, unspecified, F32.9 - Major depressive disorder, single episode, unspecified, F41.9 - Anxiety disorder, unspecified, F90.9 - Attention-deficit hyperactivity disorder, unspecified type, I10 - Essential (primary) hypertension, R73.01 - Impaired fasting glucose
== END 2025-07-01 14:26 | disposition home or self-care (01) ==
DX: F90.9 Attention-deficit hyperactivity disorder, unspecified type (principal); F32.9 Major depressive disorder, single episode, unspecified; I10 Essential (primary) hypertension; E78.5 Hyperlipidemia, unspecified; R73.01 Impaired fasting glucose; B02.9 Zoster without complications; M25.512 Pain in left shoulder; M25.511 Pain in right shoulder; G89.29 Other chronic pain

== ENCOUNTER → 2025-07-01 13:45 | Outpatient (BNVA) | payer OTHER, SELFPAY | PROVIDERS: PCP Internal Medicine | DX: M25.512 Pain in left shoulder (principal); M25.511 Pain in right shoulder; G89.29 Other chronic pain; F90.9 Attention-deficit hyperactivity disorder, unspecified type; F32.9 Major depressive disorder, single episode, unspecified; I10 Essential (primary) hypertension; E78.5 Hyperlipidemia, unspecified; R73.01 Impaired fasting glucose; B02.9 Zoster without complications | CPT/HCPCS: 96127; 99212 ==

== ENCOUNTER 2025-08-30 09:35 | Outpatient (AMB) | payer OTHER, SELFPAY ==
--- NOTE | 2025-08-30 09:56 | MHC.OFFVIS ---
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 Patient states ongoing pain for many years. He states that 10 years ago he was picked up and dropped to the floor causing him a lot of pain. Patient notices that his pain is worse with repetitive work activities involving pulling and lifting. He mentions that he has a 80lbs dog that he plays with him and he feels a lot of pain. He hasn't tried anything to help with pain he rather deal with the pain. 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 Suspected calcified axillary lymph nodes versus vascular. 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 Alvarado is a 54-year-old right-hand dominant male who presents to the office today for follow-up of left shoulder chronic pain. He states that before COVID he was seeing Dr. Shetty for his left shoulder. He reports that he was diagnosed with a rotator cuff tear and was scheduled for surgery but due to the pandemic this was postponed. He is ready to move forward with possible surgical intervention. [facility] Medical History Screening for prostate cancer Screening for diabetes mellitus Hypertension Otitis media Surgical History No pertinent past surgical history Family History Father No problems noted. Mother Breast cancer Diabetes Brother Diabetes Hypertension Social History (Updated 08/30/25 @ 10:05 by Yeimi Reed) Housing: Apartment Alcohol intake: current Alcohol intake frequency: 0-2 drinks per day Alcohol type: beer Patient Tobacco Use Status: Former Tobacco user Tobacco use type: Cigarette Cigarettes Per Day: 7 e-Cigarette/Vaping Use: Never Used Second Hand Smoke Exposure: Yes service: No Current occupational status: employed and disabled Current occupation: right hand dominant/ [employer] Cognitive needs: No Hearing needs: No Vision needs: No Review of Systems Const All systems reviewed & are unremarkable except as noted in HPI and below Physical Exam Const General: cooperative, healthy appearing and no acute distress Resp Effort & Inspection: normal respiratory effort and able to speak in complete sentences Extrem Other: Left shoulder 90 degrees of forward flexion and abduction. Able to reach T12. Pain with cross-body reach. 3/5 strength with empty can. NVI. Psych Appearance: grossly normal Mental Status: mental status grossly normal Attitude: cooperative Assessment & Plan Assessment & Plan (1) Complete rotator cuff tear of left shoulder: Code(s): M75.122 - Complete rotator cuff tear or rupture of left shoulder, not specified as traumatic Category: Medical Plan Mr. Alvarado is a 54-year-old right-hand dominant male who presents to the office today for follow-up of left shoulder chronic pain. He states that before COV he was seeing Dr. Shetty for his left shoulder. He reports that he was diagnosed with a rotator cuff tear and was scheduled for surgery but due to the pandemic this was postponed. He is ready to move forward with possible surgical intervention. While in the office today, we discussed the role of MRI imaging to see an updated view of the injury to the left shoulder and surrounding structures. An MRI has been placed at this time. We discussed the role of cortisone injection and physical therapy. However, the patient would like to discuss moving forward with surgical intervention as previously planned. He will follow up after the MRIs obtained, sooner if needed. X-rays of the left shoulder that were obtained on 04/24/2025 are negative for any acute fracture or dislocation. Orders: Orders MR shoulder LT wo con Today M75.122 - Complete rotator cuff tear or rupture of left shoulder, not specified as traumatic Coding Level of Care Code New Pt Level 4 (51713) Diagnoses Complete rotator cuff tear of left shoulder M75.122
== END 2025-08-30 10:46 | disposition home or self-care (01) ==
LOC: HO.HOS 09:36
PROVIDERS: Visit Provider Physician Assistant
DX: M75.122 Complete rotator cuff tear or rupture of left shoulder, not specified as traumatic (principal)
CPT/HCPCS: 99204

== ENCOUNTER → 2025-08-30 09:35 | Outpatient (BNVA) | payer OTHER, SELFPAY | PROVIDERS: Visit Provider Physician Assistant | DX: M75.122 Complete rotator cuff tear or rupture of left shoulder, not specified as traumatic (principal) | CPT/HCPCS: 99202 ==

== ENCOUNTER 2025-10-21 14:30 | Outpatient (AMB) | payer OTHER, SELFPAY ==
[2025-10-21 14:40] VITALS: BP 148/92; PULSE 68; RESP 18; O2SAT 99; BMI 23.3
--- NOTE | 2025-10-21 14:40 | MHC.PC.OV ---
Vital Signs 10/21/25 14:40 Height 5 ft 5 in Weight 140 lb 2 oz BMI 23.3 BP 148/92 H Blood Pressure Location Lt brachial Position Sitting Respiration 18 Pulse 68 Pulse Source Pulse Oximeter Temp Source Temporal Artery Scan Pulse Oximetry (%) 99 Oxygen Delivery Method Room Air Intake Visit Reasons: hld/IFG/AShthma/depression Social Work Therapist Required: No Accompanied by: Self / Same As Patient Allergies Penicillins (PENICILLINS) Allergy (Severe, Verified 10/21/25 14:55) ANAPHYLAXIS SEAFOOD Allergy (Severe, Uncoded 10/21/25 14:55) HIVES penincillin Allergy (Unknown, Uncoded 10/21/25 14:55) Immunodeficiency Medication List - Last Reconciled 10/21/25 by [facility] Fine albuterol sulfate 90 mcg/actuation 2 puffs PO Q6H PRN ibuprofen 600 mg PO Q8H PRN lisinopril 10 mg PO DAILY valacyclovir 1,000 mg PO Q8H 7 days Tobacco use date assessed: 10/21/25 Dental Screening Dental Screen Date: 10/21/25 Did you have a dental visit in the last 12 months?: Yes Did you have a dental problem in the last 6 months where you did not have access to dental care?: No Was dental information given to patient?: Patient has dentist HPI HPI Comments History of Present Illness Details The patient is a 55 year old male presenting for management of dental pain, diabetes, and a blood pressure check. The patient reports a significant dental issue where a tooth has grown back and is now cutting his tongue, causing it to be swollen. He has been waiting about four months for a dental appointment and has recently been told by a dentist that a deep cleaning is required before the tooth can be pulled. He is on a waiting list for the deep cleaning, which could take up to six months to a year, though a new program might offer an appointment in November. In the past, he filed down a sharp canine tooth himself. His history is notable for prior radiation therapy, which he completed almost five months ago. Since radiation, he has experienced persistent tongue swelling and altered taste, which may take up to a year to resolve. He has a history of diabetes, which he reports is stable. He reports not taking his blood pressure medication today but is running out and will need refills. He also has a history of kidney issues and is followed by a kidney specialist. [facility] Medical History Screening for prostate cancer Screening for diabetes mellitus Hypertension Otitis media Surgical History No pertinent past surgical history Family History Father No problems noted. Mother Breast cancer Diabetes Brother Diabetes Hypertension Social History Housing: Apartment Alcohol intake: current Alcohol intake frequency: 0-2 drinks per day Alcohol type: beer Patient Tobacco Use Status: Former Tobacco user Tobacco use type: Cigarette Cigarettes Per Day: 7 e-Cigarette/Vaping Use: Never Used Second Hand Smoke Exposure: Yes service: No Current occupational status: employed and disabled Current occupation: right hand dominant/ [employer] Cognitive needs: No Hearing needs: No Vision needs: No Questionnaire PHQ-9 Over the last 2 weeks, how often have you been bothered by any of the following problems? Depression Screening Interpretation: Negative Depression Screening Done: Yes Source: Developed by Drs. Gentry Cruz, Sarah Mcdermott, Gabriel Austin and colleagues, with an educational michael from [employer]. Thrive Questionnaire Date Thrive assessed: 10/21/25 I am a: Patient What is your living situation today?: I have a steady place to live Within the past 12 months, did the food you bought not last and you didn't have the money to get more?: Sometimes True Within the past 12 months, did you worry whether your food would run out before you got money to buy more?: Never true Do you have trouble paying for medicines?: No Do you have trouble getting transportation to medical appointments?: No Do you have trouble paying your heating and electricity bill?: No Do you have trouble taking care of your child, family member or friend?: No Do you have trouble with day-to-day activities such as bathing, preparing meals, shopping, managing finances, etc.?: No Are you currently unemployed and looking for a job?: Yes Are you interested in more education?: No Please select the resources that you would like help with: None Currently or been in a relationship where the following occur: No concerns reported THRIVE Score: 1 BARRY-7 AMB Questionnaire BARRY-7 Date BARRY - 7 assessed: 07/01/25 Source: Developed by Drs. Gentry Cruz, Sarah Mcdermott, Gabriel Ausitn and colleagues, with an educational michael from [employer]. Review of Systems Narrative Review of Systems - HEENT: Reports dental pain with a regrown tooth cutting the side of the tongue. - Reports tongue is still swollen five months post-radiation. - Reports altered sense of taste. - Constitutional: Reports pain is causing his blood pressure to be higher. Const Denies headache(s) Eyes Denies loss of vision ENT Reports dental pain, Denies vertigo, Denies dizziness, Denies headache(s), Denies sore throat and Reports tongue swelling (being irritated by sharp decay teeth that needs to be pulled) Card Denies chest pain, Denies leg edema and Denies lightheadedness Resp Denies cough, Denies hemoptysis and Denies wheezing GI Denies abdominal pain, Denies melena, Denies constipation, Denies diarrhea and Denies vomiting Denies dysuria, Denies urinary frequency and Denies urinary urgency Musc Reports arthralgias (Left shoulder > right shoulder), Denies joint swelling, Denies numbness and Denies tingling Skin/Breast Reports other (Left neck area rashes drying up) Neuro Denies behavioral changes, Denies vertigo, Denies dizziness, Denies headache(s), Denies loss of vision, Denies memory loss, Denies numbness and Denies tingling Psych Denies anxiety, Denies behavioral changes, Denies depression, Denies memory loss and Denies panic attacks Rasheed/Lymph Denies easy bleeding and Denies easy bruising Aller/Immun Reports tongue swelling (being irritated by sharp decay teeth that needs to be pulled) and Denies wheezing Physical exam (Primary Care) Vital Signs: Last Vital Signs Pulse 68 10/21/25 14:40 Resp 18 10/21/25 14:40 BP 148/92 H 10/21/25 14:40 Pulse Ox 99 10/21/25 14:40 Oxygen Delivery Method Room Air 10/21/25 14:40 BMI result Body Mass Index 23.3 Tobacco/Smoking Status: Tobacco use Status Tobacco use date assessed 10/21/25 10/21/25 14:52 Patient Tobacco Use Status Former Tobacco user 10/21/25 14:52 Tobacco use type Cigarette 10/21/25 14:52 e-Cigarette/Vaping Use Never Used 10/21/25 14:52 Depression Screening Interpretation: Negative Thrive Assessment: Date of Thrive Assessment Date Thrive assessed 10/21/25 10/21/25 14:52 Currently or been in a relationship where the following occur: No concerns reported Narrative Physical Exam - Vital Signs: Blood pressure was checked, but the value was not stated. - Respiratory: Lungs are clear on auscultation. Const General: awake Orientation/consciousness: patient oriented x3 HENMT Head: Yes normal to inspection Ears: hearing grossly normal bilaterally General nose exam: Normal external nose present Face and sinus: Yes normal facial exam Teeth and gingiva: poor dentition Eyes General: appearance normal, both eyes and all related structures Conjunctivae: conjunctivae normal Pupils: Equal, round and reactive pupils present Neck Neck: Yes no lymphadenopathy Chest Chest palpation & inspection: rash (Scattered dry it up rashes-appear to be resolving) Resp Effort & Inspection: normal respiratory effort Auscultation: clear to auscultation bilaterally and no wheezes Cardio Rate: regular rate Rhythm: regular rhythm Skin Lesions: lesion noted (small amount dried up healing rashes to left chest/neck) Neuro General: patient oriented x3 Cranial nerves: Yes Equal, round and reactive pupils present Gait exam (Neuro): Normal gait present Extrem General: Yes normal to inspection, Yes full ROM and No edema Psych Affect: normal affect Attitude: cooperative Insight: Good insight present (Psych) Judgement: Good judgement present (Psych) Coding Level of Care Code Est Pt Level 4 (05750) Diagnoses Hypertension, unspecified type I10 Hypertension type: unspecified Hyperlipidemia, unspecified hyperlipidemia type E78.5 Hyperlipidemia type: unspecified IFG (impaired fasting glucose) R73.01 Status post radiation therapy Z92.3 Attention deficit hyperactivity disorder (ADHD), unspecified ADHD type F90.9 Attention deficit-hyperactivity disorder type: unspecified Depression, unspecified depression type F32.9 Depression Type: unspecified Left shoulder pain, unspecified chronicity M25.512 Chronicity: unspecified Chronic right shoulder pain M25.511; G89.29 Chronicity: chronic Pain, dental K08.89 Time Spent (min) 38 Assessment & Plan Assessment & Plan (1) Hypertension: Code(s): I10 - Essential (primary) hypertension Category: Medical Qualifiers: Hypertension type: unspecified Qualified Code(s): I10 - Essential (primary) hypertension Plan: The patient reports not taking his blood pressure medication today. It was noted that his ongoing pain is likely contributing to an elevated blood pressure reading as well. A refill for his medication will be provided. (2) HLD (hyperlipidemia): Code(s): E78.5 - Hyperlipidemia, unspecified Category: Medical Qualifiers: Hyperlipidemia type: unspecified Qualified Code(s): E78.5 - Hyperlipidemia, unspecified Plan: LDL 124 Discussed lifestyle modifications including dietary changes and physical activity We will recheck lipid panel in 4 months (3) IFG (impaired fasting glucose): Code(s): R73.01 - Impaired fasting glucose Category: Medical Plan: The patient reports his diabetes is stable. A follow-up visit with labs is scheduled in three months. (4) Status post radiation therapy: Code(s): Z92.3 - Personal history of irradiation Category: Medical Plan: The patient continues to have a swollen tongue and altered taste five months after completing radiation therapy. It was discussed that these side effects are due to radiation affecting both good and bad cells, and regeneration can take a significant amount of time, possibly up to a year (5) ADHD: Code(s): F90.9 - Attention-deficit hyperactivity disorder, unspecified type Category: Medical Qualifiers: Attention deficit-hyperactivity disorder type: unspecified Qualified Code(s): F90.9 - Attention-deficit hyperactivity disorder, unspecified type Plan: He is currently not on any treatments. Reports alcohol and marijuana use. Reports that he has done okay at this time. (6) Depression: Code(s): F32.9 - Major depressive disorder, single episode, unspecified Category: Medical Qualifiers: Depression Type: unspecified Qualified Code(s): F32.9 - Major depressive disorder, single episode, unspecified Plan: Patient has a history of bipolar disorder, anxiety and ADHD he was seen Psychiatry and was on medication and he stopped these treatments because he would rather go about this the natural route. The patient recently complained of increased stress and requested to talk to a therapist. The patient reports that he has been connected with the round cutter operator and he is working with them to find a therapist. (7) Left shoulder pain: Code(s): M25.512 - Pain in left shoulder Category: Medical Qualifiers: Chronicity: unspecified Qualified Code(s): M25.512 - Pain in left shoulder Plan: Reports that he was diagnosed with arthritis since he was a teen. In addition, the patient reports that about 10 years ago he was picked up and slammed on the floor by a friend while playing. Has a result, he injured his left shoulder. This was not evaluated however he suspected that he had a rotator cuff tear. Patient has some limitation in the left arm with range of motion was unable to lift his arm completely over his head. His arm stopped that about 140 degrees before started complaining of pain. Left shoulder x-ray done recently showed no acute finding however, there was a possible calcified left lymph node in her axilla. Patient was referred to PT to evaluate and treat. The patient was seen by orthopedics and a MRI was ordered to further evalute. (8) Right shoulder pain: Code(s): M25.511 - Pain in right shoulder Category: Medical Qualifiers: Chronicity: chronic Qualified Code(s): M25.511 - Pain in right shoulder; G89.29 - Other chronic pain Plan: Reports that he was diagnosed with arthritis since he was a teen. He is reporting 6/10 pain with activity right shoulder. No limitation in range of motion. No swelling or erythema. No pain to palpation PT referral was ordered (9) Pain, dental: Code(s): K08.89 - Other specified disorders of teeth and supporting structures Category: Medical Plan: The patient's dental pain is due to a regrown tooth injuring his tongue, which remains swollen post-radiation. A deep cleaning is required before extraction, but there is a significant waiting list. Plan Plan Patient was informed and verbally consented to the use of an ambient scribe for clinic note documentation during this visit. 1. Dental Pain The patient's dental pain is due to a regrown tooth injuring his tongue, which remains swollen post-radiation. A deep cleaning is required before extraction, but there is a significant waiting list. The importance of treating the oral issue was stressed due to the risk of bacteria traveling to the heart and causing a serious infection. He was advised to contact his insurance for a list of covered dental offices to find a sooner appointment. An xfpo-ltq-uvefuly benzocaine-based oral gel was discussed as an option to numb the area for symptomatic relief. A prescription will be sent for it, though insurance coverage is uncertain. 2. Hypertension The patient reports not taking his blood pressure medication today. It was noted that his ongoing pain is likely contributing to an elevated blood pressure reading as well. A refill for his medication will be provided. 3. Impaired fasting glucose The patient reports his diabetes is stable. A follow-up visit with labs is scheduled in three months. 4. Post-Radiation Therapy Sequelae The patient continues to have a swollen tongue and altered taste five months after completing radiation therapy. It was discussed that these side effects are due to radiation affecting both good and bad cells, and regeneration can take a significant amount of time, possibly up to a year. Discussion Notes I explained to the patient the severity of his dental situation, emphasizing that an oral infection can become systemic and travel to the heart, which is highly vascular. We discussed the procedural necessity of a deep cleaning before tooth extraction, which is the reason for his treatment delay. I advised him to proactively search for a dentist who can see him sooner by calling his insurance company for a list of in-network providers. For symptomatic relief of his tongue pain, I discussed trying an [id number]-rvervft benzocaine-based oral gel to numb the area. I will send a prescription for this, but I informed him it may not be covered by insurance. We also discussed that his persistent tongue swelling and altered taste are known side effects of radiation, which can take up to a year to resolve as the tissues regenerate. I will refill his blood pressure medication and have scheduled a follow-up appointment in three months, at which time we will also recheck his lab work. Patient Instructions - It is very important to resolve your dental problem soon to avoid serious infections. Call your insurance company and ask for a list of dentists that they cover in your area so you can find an earlier appointment. - In the meantime, you can use an gnye-xzf-tmzvyvo oral numbing gel (benzocaine) on your tongue for pain relief. I will send a prescription for this, but it might not be covered by your insurance. - Continue taking your blood pressure medication as prescribed. I am sending a refill to your pharmacy. - The swelling in your tongue and changes in taste are side effects from your past radiation treatment. It may take up to a year for these to fully improve. - Please schedule a follow-up appointment in three months to get labs done and review your conditions. Medications: New benzocaine 20% 1 appl mucous membrane BEDTIME PRN 30 grams 1RF mouth irritation Refilled lisinopril 10 mg PO DAILY 90 tabs 3RF
--- OUTSIDE RECORDS SUMMARY | 2025-10-21 20:56 | XMS_ITS | Continuity of Care Document ---
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 Plan: The patient was counseled on the importance of reducing smoking and alcohol consumption for overall health improvement. I discussed the benefits of cessation and encouraged continued efforts to decrease alcohol intake. Follow-up is scheduled in two months to monitor progress and reassess. Procedure Documentation: - Fiber optic laryngoscopy performed. [email or web address] Not available 09/25/2025 11:04:11 Plan of Treatment Reminders Order Date Submit Date Provider Last Modified By Organization Details Last Modified Time Details Appointments Establish ed 15 2025 01:00P M PACO ZHAO MD Not available Not available Not available Lab None recorded. Referral None recorded. Procedures None recorded. Surgeries None recorded. Imaging None recorded. Medication Orders None recorded. Patient TargetsNo targets recorded. Patient Instructions Encounter Date Encounter Id Patient Instructions Last Modified By Organization Details Last Modified Time 09/25/2025 [id number] - Reduce smoking and alcohol consumption. - Continue efforts to improve overall health. - Return for follow-up in two months. [email or web address] Not available 09/25/2025 11:04:11 Please note: Parts of this encounter note have been generated by AI based on audio conversation. Patient consent was required prior to utilizing this technology. Content review was required prior to finalizing the note. [email or web address] Not available 09/25/2025 11:04:11 Reason for Referral None Reported. Problems Name Problem SNOMED Code Status Onset Date Resolution Date Notes Provider Name and Address Organization Details Recorded Time Neoplasm of uncertain behavior of tonsil 37859349 Active 2023 PACO ZHAO MD [address] [facility], [facility], [facility] [place], [address], [facility] [place] 4 16:20:02 Primary malignant neoplasm of tonsil 926439010 Active 2023 Tumor Location: left tonsil Stage: T2N0 Treatment : Chemo, XRT Completio n: 01/28/25 Oncology Team: Rodrigo Lofton MD [address] [facility], [facility], [place], [address], [place] - [facility] [place] 5 23:26:56 Thyroid nodule 654184186 Active 2023 PACO ZHAO MD [address] [address], [facility] [place], [address], [place] [facility] [place] 4 12:27:08 Tobacco dependenc e caused by cigarette s 792119299129 54529 Active 2024 PACO ZHAO MD [address] [place] [address], [facility] [place], [address], [facility] - [facility] [place] 5 11:04:26 Alcohol dependenc e 12838317 Active 2024 PACO ZHAO MD [address] [address], [facility] [place], [address], [facility] - [facility] [place] 5 11:04:48 Problem Notes None recorded. Procedures Surgical History Date Name Laterality Status Provider Name and Address Organization Details Recorded Time 5 FOL_DP completed PACO ZHAO MD [address] [place] [address], [address], [facility] - [facility] 09/24/2025 09:45:51 5 FOL_DP completed PACO ZHAO MD [address] [place] [address],[address], [address], [place] - [facility] 07/09/2025 09:11:51 4 Telehealth completed PACO ZHAO MD [address] [facility],[address], [address], [facility] 09/28/2024 09:27:00 Biopsy Oropharynx completed PACO ZHAO MD [address] [facility],[address] [address], [place], [address], [facility] 09/21/2024 16:19:47 Imaging Results None recorded. Procedure Notes None recorded. Medical Equipment None Reported. Allergies Allergen ID Allergen Name Allergen Category Reaction Reaction Severity Criticality Documentation Date Start Date Code Code System Note Provider Name and Address Organization Details Recorded Time 772451 Product containin g penicilli n (product) medicatio n Not available Not available Not available 09/21/2024 45894 8001 SNOMED Felicity Simon [facility] 16:02:00 Medications Name Sig Start Date Stop Date Status Note LastModified by Organization Details LastModified Time nysta/lidoc /diphe/anta c TAKE 1 OR 2 TEASPOONS FUL ORALLY EVERY 2 TO 4 HOURS NEEDED; SWISH & SWALLOW; SHAKE WELL BEFORE USE//REFR IGERATE)) . active Not Available Not Available No t Available lidoc/nysta /diphe/anta c TAKE 1 OR 2 TEASPOONF UL ORAL EVERY 2 TO 4 HOURS NEEDED; SWISH & SWALLOW; SHAKE WELL BEFORE USE; REFRIGERA TE active Not Available Not Available No t Available prednisolon e sodium phosphate 15 mg/5 mL (3 mg/mL) oral solution USE 1/3 OF A TEASPOONF UL ORALLY TWICE A DAY FOR 10 DAYS, GARGLE & SWALLOW. 07/09 completed Not Available Not Available Not Available azithromyci n 250 mg tablet TAKE 2 TABLETS ON FIRST DAY , THEN 1 TABLET DAILY FOR 4 DAYS 07/09 completed Not Available Not Available Not Available valacyclovi r 1 gram tablet TAKE ONE TABLET BY MOUTH EVERY 8 HOURS FOR 7 DAYS 09/25 completed Not Available Not Available Not Available ciprofloxac in 250 mg tablet TAKE ONE TABLET BY MOUTH TWICE A DAY 07/09 completed Not Available Not Available Not Available tramadol 50 mg tablet TAKE ONE TABLET BY MOUTH EVERY 8 HOURS NEEDED FOR PAIN active Not Available Not Available No t Available dexamethaso ne 0.5 mg/5 mL oral solution USE 5 ML. ORALLY, SWISH FOR 30 SECONDS THEN SWALLOW 3 TIMES A DAY FOR 10 DAYS 07/09 completed Not Available Not Available Not Available IBU 600 mg tablet TAKE ONE TABLET BY MOUTH EVERY 8 HOURS NEEDED FOR PAIN active Not Available Not Available No t Available clotrimazol e-betametha sone 1 %-0.05 % topical cream ADMINISTE R 1 APPLICATI ON TOPICALLY TWO TIMES A DAY FOR 2 WEEKS 07/09 completed Not Available Not Available Not Available lisinopril 10 mg tablet TAKE ONE TABLET BY MOUTH EVERY DAY active Not Available Not Available No t Available gabapentin 100 mg capsule TAKE ONE CAPSULE BY MOUTH THREE TIMES A DAY active Not Available Not Available No t Available albuterol sulfate HFA 90 mcg/actuati on aerosol inhaler INHALE TWO PUFFS BY MOUTH EVERY 6 HOURS NEEDED FOR BRONCHOSP ASM active Not Available Not Available No t Available Vitals Date Recorded Body height Body mass index (BMI) Body weight Provider Name and Address Organization Details Last Updated DateTime 09/25/2025 165.1 cm 23 kg/m2 71114.75 [facility] 09/25/2025 10:50:53 Social History None recorded. Functional Status None recorded. Mental Status None recorded. Family History Nothing Reported. Medical History No medical history recorded. Past Encounters Encounter ID Performer Location Encounter Start Date Encounter Closed Date Diagnosis/Indication Diagnosis SNOMED-CT Code Diagnosis ICD10 Code Diagnosis IMO Codes Diagnosis Note [id number] PACO ZHAO MD [facility] of [address] [address] 09/25/2025 10:37:49 09/25/2025 11:06:30 Primary malignant neoplasm of tonsil 322644571 C09.9 No evidence of disease on examinatio n today. Fiberoptic examinatio n of nasopharyn x, hypopharyn x and larynx was stable. Cancer surveillan ce in 2 months was recommende d. Tobacco de pendence caused by cigarettes 4010940814 4673049 F17.877 1951733 Alcohol dependence 21408 003 F10.20 7283100 Health Concerns Section Related Observation LastModified by Organization Detai ls LastModified Time None Recorded Concern Status LastModified by Organization Details LastModified Time None Recorded Payers Encounter Date Sequence Insurance Name Policy Number Policy Knight Covered Member ID Knight Member ID Guarantor Name 09/25/2025 1 [facility] - DOS ON OR AFTER 2023 - ONE CARE (MEDICARE REPLACEMENT/ADV ANTAGE - HMO) Yohan Ling [id number] Yohan Ling Notes Date Note Type Note Provider Name and Address Organization Details Recorded Time 09/25/2025 text/html Tumor Location: left tonsil Stage: T2N0 Treatment: XRT Completion: 01/28/25 Oncology Team: Rodrigo Lofton 06/16/25 [facility], Post treatment PET CT clear He returned to smoking but reports drinking approximately four beers daily. Yohan Lign is a 54-year-old male who presents for follow-up after completing radiation therapy for tonsil cancer. He reports no recent changes to his health and states he is eating well. He denies any lumps or bumps. He has resumed smoking due to stress related to recent family events, including the passing of his uncle and grandmother, his being found in correction after being missing, and his dog being ill. He also reports increased alcohol consumption, drinking approximately three to four beers daily, which is a reduction from prior habits. He expresses efforts to improve his alcohol intake and overall health. PACO ZHAO MD [address] [place] [address], [address], [facility] - [facility] 09/25/2025 11:05:19
--- OUTSIDE RECORDS SUMMARY | 2025-10-21 20:57 | XMS_ITS | Data Portability ---
Author Organization [place] - [facility], Allergy Address [address] [place] [address] Care Team Providers Care Clinical Engineering Director Name Role Phone GIA MAYFIELD Primary Care [...] smoking cessation. [email or web address] Not available 09/28/2024 09:28:04 07/09/2025 07/09/2025 Status post treatment for tonsil cancer, completed in January. The patient will continue surveillance visits every two months for the first year post-treatment, transitioning to every three months in the second year. He has been advised to monitor thyroid levels with his primary care doctor due to potential post-treatment effects. Regular dental check-ups, including a deep cleaning, are recommended to minimize bacterial buildup and maintain oral health. The patient has been counseled on the importance of maintaining a balanced diet to support weight gain and overall recovery. Alcohol consumption was discussed, and the patient was encouraged to monitor intake. Follow-up is scheduled in two months. [email or web address] Not available 07/09/2025 09:15:38 09/25/2025 09/25/2025 - Status post radiation therapy [...] Appointments Establish ed 15 2025 01:00P M CALVIN KATHLEEN MD Not available Not available Not available Lab surgical pathology study - left tonsil 2023 PAKO [facility] (Centralized Electronic Ordering - All Locations), Patient Can Go To The Location Of Their Choice, [id number] 2024 11:21:49 Referral radiation oncologis t referral - Referral for Primary malignant neoplasm of tonsil 2023 PAKO Nicholson MD, [address] [place], [address], 10/25/2024 16:03:46 medical oncologis t referral - Referral for Primary malignant neoplasm of tonsil. PET-CT ordered. Thank you 2023 maisha Wallace MD, [address] [place], [address], 11/01/2024 16:11:21 Procedures None recorded. Surgeries None recorded. Imaging PET-CT, skull base to mid-thigh scan 2023 024 [email or web address] Not available 10/09/2024 08:58:08 Medication Orders None recorded. Patient TargetsNo targets recorded. Patient Instructions Encounter Date Encounter Id Patient Instructions Last Modified By Organization Details Last Modified Time 07/09/2025 [id number] - Continue surveillance visits every two months until January, then transition to every three months. - Monitor thyroid levels with primary care doctor. - Maintain regular dental check-ups, including a deep cleaning. - Focus on a balanced diet to support weight gain. - Monitor alcohol consumption. [email or web address] Not available 07/09/2025 09:15:38 Please note: Parts of this encounter note have been generated by AI based on audio conversation. Patient consent was required prior to utilizing this technology. Content review was required prior to finalizing the note. [email or web address] Not available 07/09/2025 09:15:38 09/25/2025 [id number] - Reduce smoking and alcohol consumption. - [...] Not available 09/25/2025 11:04:11 Reason for Referral Referral for Primary maligna [...] observ ation record ed. [email or web address] [facility] [address], [address], 10/10/2024 15:31:12 11/09/19 25 11/09/2024 [place], thyro id No observ ation record ed. [email or web address] [facility] [address], [address], 11/12/2024 13:38:02 Result Notes None recorded. Problems Name Problem SNOMED Code Status Onset Date Resolution Date Notes Provider Name and Address Organization Details Recorded Time Neoplasm of uncertain behavior of tonsil 14378738 Active 2023 CALVIN KATHLEEN MD 100 [facility] E [facility], [place], [address], [place] - [facility] [place] 4 16:20:02 Primary malignant neoplasm of tonsil 189467958 Active 2023 Tumor Location: left tonsil Stage: T2N0 Treatment : Chemo, XRT Completio n: 01/28/25 Oncology Team: Rodrigo Lofton MD [address] [place] [address], [place], [address], [place] [facility] [place] 5 23:26:56 Thyroid nodule 779137972 Active 2023 CALVIN KATHLEEN MD [address] [place] [address], [place], [address], [place] [facility] [place] 4 12:27:08 Tobacco dependenc e caused by cigarette s 547776553761 40361 Active 2024 CALVIN KATHLEEN MD [address] [place] [address], [place], [address], [place] [facility] [place] 5 11:04:26 Alcohol dependenc e 38989176 Active 2024 CALVIN KATHLEEN MD [address] [place] [address], [place], [address], [place] [facility] [place] 5 11:04:48 Problem Notes None recorded. Procedures Surgical History Date Name Laterality Status Provider Name and Address Organization Details Recorded Time 5 FOL_DP completed CALVIN KATHLEEN MD [address] [place] [address], [address], [place] [facility] [place] 09/24/2025 09:45:51 5 FOL_DP completed CALVIN KATHLEEN MD [address] [place] [address], [address], [place] [facility] [place] 07/09/2025 09:11:51 4 Telehealth completed CALVIN KATHLEEN MD [address] [place] [address], [address], [facility] 09/28/2024 09:27:00 Biopsy Oropharynx completed CALVIN KATHLEEN MD [address] [place] [address], [address], [facility] 09/21/2024 16:19:47 Imaging Results None recorded. Procedure Notes None recorded. Medical Equipment None Reported. Allergies Allergen ID Allergen Name Allergen Category Reaction Reaction Severity Criticality Documentation Date Start Date Code Code System Note Provider Name and Address Organization Details Recorded Time 818963 Product containin g penicilli n (product) medicatio n Not available Not available Not available 09/21/2024 67289 8001 SNOMED Felicity ling [facility] 16:02:00 Medications Name Sig Start Date [...] and Address Organization Details Last Updated DateTime 07/09/2025 165.1 cm 23 kg/m2 31194.75 g [facility] 07/09/2025 09:05:28 Date Recorded Body height Body mass index (BMI) Body weight Provider Name and Address Organization Details Last Updated DateTime 09/21/2024 165.1 cm 25.8 kg/m2 42654.82 g Felicity Simon [facility] 09/21/2024 16:01:36 Date Recorded Body height Body mass index (BMI) Body weight Provider Name and Address Organization Details Last Updated DateTime 09/25/2025 165.1 cm 23 kg/m2 15091.75 g [facility] 09/25/2025 10:50:53 Social History None recorded. Functional Status None recorded. Mental Status None recorded. Family History Nothing Reported. Medical History No medical history recorded. Past Encounters Encounter ID Performer Location Encounter Start Date Encounter Closed Date Diagnosis/Indication Diagnosis SNOMED-CT Code Diagnosis ICD10 Code Diagnosis IMO Codes Diagnosis Note [id number] CALVIN KATHLEEN MD [facility] of [address] [address] 09/21/2024 15:11:53 09/21/2024 16:30:58 Neoplasm of uncertain behavior of tonsil 54386051 D37.05 [id number] CALVIN KATHLEEN MD [facility] of [address] [address] 09/28/2024 16:58:55 10/01/2024 09:34:22 Primary malignant neoplasm of tonsil 448334303 C09.9 [id number] CALVIN KATHLEEN MD [facility] of [address] [address] 07/09/2025 08:48:51 07/09/2025 09:17:44 Primary malignant neoplasm of tonsil 382031018 C09.9 No evidence of disease on examinatio n today. Fiberoptic examinatio n of nasopharyn x, hypopharyn x and larynx was stable. Cancer surveillan ce in 2 months was [place]e [place] [id number] CALVIN KATHLEEN MD [facility] of [address] [address] 09/25/2025 10:37:49 09/25/2025 11:06:30 Primary malignant neoplasm of tonsil 574320259 C09.9 No evidence of disease on examinatio n today. Fiberoptic examinatio n of nasopharyn x, hypopharyn x and larynx was stable. Cancer surveillan ce in 2 months was recommende d. Tobacco de pendence caused by cigarettes 7406096595 9617735 F17.316 9678911 Alcohol dependence 80623 003 F10.20 5368409 Health Concerns Section Related Observation LastModified by Organization Detai ls LastModified Time None Recorded Concern Status LastModified by Organization Details LastModified Time None Recorded Advance Directives Directive None Recorded Payers Insurance Date Sequence Insurance Name Policy Number Policy Knight Covered Member ID Knight Member ID Guarantor Name [id number] 1 [facility] - DOS ON OR AFTER 2023 - ONE CARE (MEDICARE REPLACEMENT/ADV ANTAGE - HMO) Yohan Ling [id number] Yohan Ling 07/09/2025 2 [facility] - DOS ON OR AFTER 2023 - ONE CARE (MEDICARE REPLACEMENT/ADV ANTAGE - HMO) Yohan Ling [id number] Yohan Ling 07/09/2025 1 [facility] - DOS ON OR AFTER 2023 - ONE CARE (MEDICARE REPLACEMENT/ADV ANTAGE - HMO) Yohan Ling [id number] Yohan Ling 07/09/2025 1 [facility] - DOS ON OR AFTER 2023 - MEDICARE [place]VANTAGE [place] (MEDICARE REPLACEMENT/ADV ANTAGE - PPO) Yohan Ling [id number] Yohan Ling 07/09/2025 1 [facility] - DOS ON OR AFTER 2023 - INTERMEDIATE OPTIONS AND ONE CARE (MEDICARE REPLACEMENT/ADV ANTAGE - PPO) Yohan Ling [id number] Yohan Ling Notes Date Note Type Note Provider Name and Address Organization Details Recorded Time 09/21/2024 text/html ROS as noted in the HPI Left tonsil massonset of tongue pain May Dr Elder noted ulcer left superior tonsil - requested imaging and referred out.CT neck is pending insurance approval work - [employer] at night CALVIN KATHLEEN MD 100 [facility],[address], [address], [facility] - [facility] 09/21/2024 16:30:14 09/28/2024 text/html ROS as noted in the HPI Left tonsil massonset of tongue pain May Dr Elder noted ulcer left superior tonsil - requested imaging and referred out.CT neck is pending insurance approval 09/21/24 chato [place] left tonsil, path at [facility]: [employer] work - [employer] at night CALVIN KATHLEEN MD [address] [place] [address],[address], [address], [facility] 09/28/2024 17:05:11 07/09/2025 text/html Tumor Location: left tonsil Stage: T2N0 Treatment: Chemo, XRT Completion: 01/28/25 Oncology Team: Rodrigo Lofton 06/16/25 [facility], Post treatment PET CT clear Yohan Ling is a 54-year-old male who presents for surveillance following treatment for tonsil cancer. He completed treatment in January and underwent a PETCT scan in June, which demonstrated no residual disease. He reports significant weight loss of approximately 30 pounds during treatment but has recently gained three pounds, bringing his weight to 139 pounds. He is eating independently by mouth, though he notes diminished flavor perception. He has transitioned from consuming primarily soup to incorporating rice and pasta into his diet. He denies smoking but reports drinking approximately four beers daily. He has maintained his employment throughout treatment despite challenges with speaking. He is scheduled for a deep dental cleaning and has been advised to monitor thyroid levels due to potential post-treatment effects. CALVIN KATHLEEN MD 100 [facility],[address], [address], [place] - [facility] 07/09/2025 09:16:23 09/25/2025 text/html Tumor Location: left tonsil Stage: T2N0 Treatment: XRT Completion: 01/28/25 Oncology Team: Rodrigo Lofton 06/16/25 [facility], Post treatment PET CT clear He returned to smoking but reports drinking approximately four beers daily. Yohan Ling is a 54-year-old male who presents for follow-up after completing radiation therapy for tonsil cancer. He reports no recent changes to his health and states he is eating well. He denies any lumps or bumps. He has resumed smoking due to stress related to recent family events, including the passing of his uncle and grandmother, his being found in long term after being missing, and his dog being ill. He also reports increased alcohol consumption, drinking approximately three to four beers daily, which is a reduction from prior habits. He expresses efforts to improve his alcohol intake and overall health. CALVIN KATHLEEN MD 100 [facility],[address] [address], [place], [address], [place] [facility] 09/25/2025 11:05:19
== END 2025-10-21 15:12 | disposition home or self-care (01) ==
LOC: HO.HMCH 14:31
DX: I10 Essential (primary) hypertension (principal); E78.5 Hyperlipidemia, unspecified; R73.01 Impaired fasting glucose; Z92.3 Personal history of irradiation; F90.9 Attention-deficit hyperactivity disorder, unspecified type; F32.9 Major depressive disorder, single episode, unspecified; M25.512 Pain in left shoulder; M25.511 Pain in right shoulder; G89.29 Other chronic pain; K08.89 Other specified disorders of teeth and supporting structures

== ENCOUNTER → 2025-10-21 14:30 | Outpatient (BNVA) | payer OTHER, SELFPAY | DX: I10 Essential (primary) hypertension (principal); F32.9 Major depressive disorder, single episode, unspecified; R73.01 Impaired fasting glucose; E78.5 Hyperlipidemia, unspecified; F90.9 Attention-deficit hyperactivity disorder, unspecified type; M25.512 Pain in left shoulder; M25.511 Pain in right shoulder; G89.29 Other chronic pain; K08.89 Other specified disorders of teeth and supporting structures; Z92.3 Personal history of irradiation | CPT/HCPCS: 99212 ==